=== PATIENT | female | born 1955 | race Two or more races ===

== ENCOUNTER 2016-08-16 | Outpatient (CLI) | payer MEDICAID | END 2016-08-16 15:00 | disposition home or self-care (01) | DX: R07.9 Chest pain, unspecified (principal) ==

== ENCOUNTER 2016-11-14 13:54 | Outpatient (CLI) | payer MEDICAID | END 2016-11-14 13:55 | disposition home or self-care (01) | DX: N64.4 Mastodynia (principal) ==

== ENCOUNTER 2016-12-17 08:00 | Outpatient (CLI) | payer MEDICAID ==
[2016-12-17 13:03] LABS: CHOL/HDL RATIO 4.4 (<4.4); CHOLESTEROL 204 mg/dL; HDL CHOLESTEROL 46 mg/dL; TRIGLYCERIDES 101 mg/dL; VLDL CHOLESTEROL 20 mg/dL
== END 2016-12-17 08:01 | disposition home or self-care (01) ==
LOC: LAB.N 08:00
PROVIDERS: ATTEND Internal Medicine Cardiovascular Disease
DX: R07.9 Chest pain, unspecified (principal); F17.200 Nicotine dependence, unspecified, uncomplicated; E66.9 Obesity, unspecified; R00.2 Palpitations
CPT/HCPCS: 36415; 80061

== ENCOUNTER 2017-05-31 09:20 | Outpatient (CLI) | payer MEDICAID ==
[2017-05-31 13:04] LABS: BASOPHILS % (AUTO) 0.6 %; EOSINOPHILS # (AUTO) 0.1 10^3/uL (0.0-0.7); EOSINOPHILS % (AUTO) 2.8 %; HCT - HEMATOCRIT 35.9 % (37.0-47.0); LYMPHOCYTES # (AUTO) 1.4 10^3/uL (1.5-3.5); LYMPHOCYTES % (AUTO) 27.2 %; MEAN CORPUSCULAR HEMOGLOBIN 29.3 pg (27.0-31.0); MEAN CORPUSCULAR HGB CONC 33.4 g/dL (32.0-36.0); MEAN CORPUSCULAR VOLUME 87.9 fL (81.0-99.0); MEAN PLATELET VOLUME 9.8 fL (7.9-10.8); MONOCYTES # (AUTO) 0.3 10^3/uL (0.0-1.0); MONOCYTES % (AUTO) 6.6 %; NEUTROPHILS # (AUTO) 3.3 10^3/uL (1.5-6.6); NEUTROPHILS % (AUTO) 62.8 %; RED BLOOD COUNT 4.09 10^6/uL (4.20-5.40); RED CELL DISTRIBUTION WIDTH 13.1 % (12.0-15.0); UNCORRECTED WHITE BLOOD COUNT 5.2 x10^3/uL; WHITE BLOOD COUNT 5.2 x10^3/uL (4.8-10.8)
[2017-05-31 14:00] LABS: ALBUMIN/GLOBULIN RATIO 1.4 (1.0-2.2); BILIRUBIN,TOTAL 0.6 mg/dL (0.2-1.0); BUN - BLOOD UREA NITROGEN 14 mg/dL (6-20); CALCIUM 8.8 mg/dL (8.5-10.3); CARBON DIOXIDE - CO2 26 mmol/L (21-32); CHLORIDE 108 mmol/L (101-111); CHOL/HDL RATIO 3.9 (<4.4); CHOLESTEROL 194 mg/dL; CREATININE 0.6 mg/dL (0.4-1.0); GFR - MDRD 102 (>89); GLUCOSE 106 mg/dL (70-100); HDL CHOLESTEROL 50 mg/dL; LDL/HDL RATIO 2.6 (<4.4); SODIUM 141 mmol/L (135-145); TOTAL PROTEIN 6.8 g/dL (6.7-8.2); TRIGLYCERIDES 72 mg/dL; VLDL CHOLESTEROL 14 mg/dL
== END 2017-05-31 09:21 | disposition home or self-care (01) ==
LOC: LAB.N 09:20
PROVIDERS: ATTEND Family Medicine
DX: F33.0 Major depressive disorder, recurrent, mild (principal); M85.80 Other specified disorders of bone density and structure, unspecified site; F17.200 Nicotine dependence, unspecified, uncomplicated; Z51.81 Encounter for therapeutic drug level monitoring
CPT/HCPCS: 36415; 80053; 80061; 82306; 84443; 85025

== ENCOUNTER 2017-06-27 19:37 | Emergency (ER) | payer MEDICAID ==
[2017-06-27 20:05] LABS: BILIRUBIN,URINE NEGATIVE (NEGATIVE)
[2017-06-27 20:07] LABS: UA CHARGE (STRIP ONLY) YES; UR CULTURE IF IND NOT INDICATED
--- NOTE | 2017-06-27 20:23 | ED Physician Documentation ---
PD HPI ABD PAIN - Stated complaint Stated Complaint: LT SIDE ABD PX INTO NECK - Chief complaint Chief Complaint: Abd Pain - History obtained from History obtained from: Patient - History of Present Illness Timing - onset: How many days ago (2) Timing - duration: Days (2) Timing - details: Abrupt onset, Intermittant, Waxing and waning Pain level now: 9 Quality: Pain Location: LUQ Radiation: Left flank Improved by: Other (no ameliorating factors) Worsened by: Other (no exacerbating factors) Associated symptoms: No: Fever, Nausea, Vomiting, Diarrhea, Constipation Similar symptoms before: Has not had sx before Recently seen: Not recently seen Review of Systems Constitutional: denies: Fever, Chills, Sweats GI: denies: Abdominal Pain, Nausea, Vomiting, Constipation, Diarrhea : denies: Dysuria, Frequency Skin: denies: Rash Musculoskeletal: reports: Back pain PD PAST MEDICAL HISTORY - Past Medical History Cardiovascular: None, Hypertension, High cholesterol Respiratory: Asthma, COPD, Emphysema Neuro: None Endocrine/Autoimmune: None GI: None FLOOR SPECIALIST: None : Incontinence HEENT: None Psych: Panic attacks Musculoskeletal: Osteoarthritis, Chronic back pain Derm: None - Past Surgical History Past Surgical History: Yes General: Cholecystectomy HEENT: Tonsil/Adenoidectomy - Present Medications Home Medications: Ambulatory Orders Medication Instructions Recorded Confirmed Aspirin 81 mg PO DAILY 04/02/16 08/02/16 Oxybutynin [Ditropan] 10 mg PO DAILY 04/02/16 08/02/16 Venlafaxine ER [Effexor ER] 75 mg PO DAILY 04/02/16 08/02/16 Cephalexin [Keflex] 500 mg PO BID #7 capsule 04/04/16 08/02/16 Albuterol Sulfate [Proair Hfa] 1 puffs IH PRN PRN 04/06/16 08/02/16 Fluticasone [Flonase] 1 sprays YOAN DAILY PRN 04/06/16 08/02/16 oxyCODONE/ACET 5/325 [Percocet 5 1 - 2 each PO Q6H PRN #14 tablet 06/27/17 mg/325 mg] - Allergies Allergies/Adverse Reactions: Allergies Allergy/AdvReac Type Severity Reaction Status Date / Time No Known Drug Allergies Allergy Verified 06/27/17 19:46 - Social History Does the pt smoke?: Yes Smoking Status: Current every day smoker Does the pt drink ETOH?: No - Immunizations Immunizations are current?: Yes - POLST Patient has POLST: No PD ED PE NORMAL - Vitals Vital signs reviewed: Yes - General General: Alert and oriented X 3, Well developed/nourished, Other (appears to be in mild-moderate painful distress that waxes and wanes during H+P) - HEENT HEENT: Moist mucous membranes - Cardiac Cardiac: RRR, No murmur - Respiratory Respiratory: No respiratory distress, Clear bilaterally - Abdomen Abdomen: Soft, Non tender, Non distended - Back Back: No CVA TTP - Derm Derm: Normal color, Warm and dry, No rash - Extremities Extremities: No edema Results - Vitals Vitals: Vital Signs - 24 hr 06/27/17 06/27/17 19:43 23:12 Temperature 36.6 C Heart Rate 77 71 Respiratory 16 18 Rate Blood Pressure 137/76 H 160/69 H O2 Saturation 97 97 Oxygen O2 Source Room air - EKG (time done) No standard instances Rate: Rate (enter#) (63) Rhythm: NSR [place]: Normal Intervals: Normal [place] QRS: Normal Ischemia: Normal ST segments - Labs Labs: Laboratory Tests 06/27/17 19:55 Urine Color YELLOW Urine Clarity CLEAR Urine pH 7.0 Ur Specific [place] 1.020 Urine Protein NEGATIVE Urine Glucose (UA) NEGATIVE Urine Ketones NEGATIVE Urine Occult Blood TRACE-LYSE Urine Nitrite NEGATIVE Urine Bilirubin NEGATIVE Urine Urobilinogen 1 (NORMAL) Ur Leukocyte Esterase NEGATIVE Ur Microscopic Review NOT INDICATED Urine Culture Comments NOT INDICATED - Rads (name of study) CT A/P Radiology: Prelim report reviewed, See rad report PD MEDICAL DECISION MAKING - ED course Complexity details: reviewed results, re-evaluated patient, considered differential, d/w patient Departure - Departure Disposition: 01 Home, Self Care Clinical Impression: Flank pain Back pain Qualifiers: Back pain location: low back pain Chronicity: acute Back pain laterality: left Sciatica presence: without sciatica Qualified Code(s): M54.5 - Low back pain Condition: Good Instructions: ED Flank Pain Uncertain Cause, NARCOTIC, Oral, ED Neck Back Pain General Follow-Up: Tiffanie Hall FACILITIES AND GROUNDS DIRECTOR [Primary Care Provider] - (Later this month as scheduled) Prescriptions: oxyCODONE/ACET 5/325 [Percocet 5 mg/325 mg] 1 - 2 each PO Q6H PRN #14 tablet PRN Reason: Pain Discharge Date/Time: 06/27/17 23:12
[2017-06-27] MEDS ORDERED: HYDROmorphone 1 MG/ML SYRINGE IM STA (20:35)
[2017-06-27] MEDS ORDERED: HYDROmorphone 1 MG/ML SYRINGE ONE (20:55)
--- NOTE | 2017-06-27 22:18 | CT Preliminary Report ---
Exam: CT ABDOMEN/PELVIS W/O IMPRESSION: 1. No urinary tract stones or obstruction. 2. Slight interval increase in size of hyperdense, likely proteinaceous or hemorrhagic left renal cys t. 3. Status post cholecystectomy. [facility] SITE ID: [id number]
--- NOTE | 2017-06-27 22:20 | CT Report ---
EXAM: CT ABDOMEN AND PELVIS (CT KUB) EXAM DATE: 06/27/2017 09:21 PM. CLINICAL HISTORY: Left flank pain. COMPARISONS: 08/02/2016 CT. TECHNIQUE: Routine axial helical CT imaging was performed through the abdomen and pelvis without IV c ontrast. Reconstructions: Coronal and sagittal. In accordance with CT protocol optimization, one or more of the following dose reduction techniques w ere utilized for this exam: automated exposure control, adjustment of mA and/or KV based on patient s ize, or use of iterative reconstructive technique. FINDINGS: Lung Bases: Unremarkable. Right Kidney/Ureter: No stones, hydronephrosis, or hydroureter. No perinephric fat stranding. Left Kidney/Ureter: No stones, hydronephrosis, or hydroureter. No perinephric fat stranding. There is a 3.3 x 3.1 cm slightly hyperdense exophytic cyst at the midpole of the left kidney demonstrating an attenuation value of 30 Hounsfield units. This has slightly increased in size since the comparison C T. Other Solid Organs: Noncontrast images of the solid organs are grossly unremarkable. Gallbladder/Bile Ducts: The gallbladder has been removed. No bile duct dilatation. Peritoneal Cavity: No free fluid, free air or yoselyn adenopathy. Bowel is grossly unremarkable. Pelvic Organs: No bladder stones or wall thickening. Noncontrast images of the visualized pelvic orga ns are unremarkable. Vasculature: Unremarkable. Other: None. IMPRESSION: 1. No urinary tract stones or obstruction. 2. Slight interval increase in size of hyperdense, likely proteinaceous or hemorrhagic left renal cys t. 3. Status post cholecystectomy. [facility] Referring Provider Line: [phone] SITE ID: [id number]
[2017-06-27] MEDS ORDERED: oxyCODONE/ACET 5/325 Prepack 4 PO STA (22:59)
[2017-06-27] MEDS ORDERED: oxyCODONE/ACET 5/325 Prepack 4 PO ONE (23:12)
[2017-06-27 23:15] VITALS: BP 160/69
== END 2017-06-27 23:12 | disposition home or self-care (01) ==
LOC: ED 19:37
DX: R10.32 Left lower quadrant pain (principal); M54.5 Low back pain; I10 Essential (primary) hypertension; E78.00 Pure hypercholesterolemia, unspecified; J44.9 Chronic obstructive pulmonary disease, unspecified; J45.909 Unspecified asthma, uncomplicated; M19.90 Unspecified osteoarthritis, unspecified site; Z79.82 Long term (current) use of aspirin; F17.200 Nicotine dependence, unspecified, uncomplicated
CPT/HCPCS: 74176; 81003; 93005; 96372; 99283; 99284; J1170; 81001; 87086

== ENCOUNTER 2017-09-03 10:02 | Outpatient (CLI) | payer MEDICAID ==
[2017-09-03 13:31] LABS: ALBUMIN 3.9 g/dL (3.2-5.5); ALBUMIN/GLOBULIN RATIO 1.2 (1.0-2.2); BILIRUBIN,TOTAL 0.6 mg/dL (0.2-1.0); CREATININE 0.7 mg/dL (0.4-1.0); MAGNESIUM 1.9 mg/dL (1.7-2.8); TOTAL PROTEIN 7.1 g/dL (6.7-8.2)
== END 2017-09-03 10:03 | disposition home or self-care (01) ==
LOC: LAB.N 10:02
PROVIDERS: ATTEND Nurse Practitioner Gerontology
DX: M62.838 Other muscle spasm (principal); Z13.9 Encounter for screening, unspecified
CPT/HCPCS: 36415; 80053; 83735

== ENCOUNTER 2017-11-19 13:08 | Emergency (ER) | payer MEDICAID ==
[2017-11-19] MEDS ORDERED: predniSONE 20 MG TABLET PO STA (13:33)
[2017-11-19] MEDS ORDERED: IPRATROPIUM/ALBUTEROL 3 ML NEB INH STA (13:33)
--- NOTE | 2017-11-19 13:36 | ED Physician Documentation ---
PD HPI DYSPNEA - Stated complaint Stated Complaint: DIFF BREATHING - History obtained from History obtained from: Patient - History of Present Illness Timing - onset: Yesterday (61-year-old woman with intermittent asthma presents with difficulty breathing since yesterday. Associated with cough. Says it usually related to stress and upper respiratory infections. She saw her physician yesterday who prescribed a steroid pack, an inhaler, Flonase, and Claritin. She has picked up all of these medications except I guess the pharmacy did not have the steroid. She has not used the inhaler yet. There are no fevers.) Review of Systems Constitutional: denies: Fever, Chills, Fatigue Nose: reports: Rhinorrhea / runny nose Throat: reports: Sore throat Respiratory: reports: Dyspnea, Cough GI: denies: Abdominal Pain PD PAST MEDICAL HISTORY - Past Medical History Cardiovascular: None, Hypertension, High cholesterol Respiratory: Asthma, COPD, Emphysema Neuro: None Endocrine/Autoimmune: None GI: None QUILT MAKER: None : Incontinence HEENT: None Psych: Panic attacks Musculoskeletal: Osteoarthritis, Chronic back pain Derm: None - Past Surgical History Past Surgical History: Yes General: Cholecystectomy HEENT: Tonsil/Adenoidectomy - Present Medications Home Medications: Ambulatory Orders Medication Instructions Recorded Confirmed Aspirin 81 mg PO DAILY 04/02/16 08/02/16 Oxybutynin [Ditropan] 10 mg PO DAILY 04/02/16 08/02/16 Venlafaxine ER [Effexor ER] 75 mg PO DAILY 04/02/16 08/02/16 Albuterol Sulfate [Proair Hfa] 1 puffs IH PRN PRN 04/06/16 08/02/16 Fluticasone [Flonase] 1 sprays YOAN DAILY PRN 04/06/16 08/02/16 Doxycycline Hyclate 100 mg PO BID #14 tablet 11/19/17 predniSONE [Deltasone] 60 mg PO DAILY 5 Days tablet 11/19/17 - Allergies Allergies/Adverse Reactions: Allergies Allergy/AdvReac Type Severity Reaction Status Date / Time No Known Drug Allergies Allergy Verified 11/19/17 13:15 - Social History Does the pt smoke?: Yes Smoking Status: Current every day smoker Does the pt drink ETOH?: No - Immunizations Immunizations are current?: Yes - POLST Patient has POLST: No PD ED PE NORMAL - Vitals Vital signs reviewed: Yes - General General: Alert and oriented X 3, No acute distress - HEENT HEENT: PERRL, EOMI - Neck Neck: Supple, no meningeal sign, No bony TTP - Cardiac Cardiac: RRR, No murmur - Respiratory Respiratory: No respiratory distress, Other (Wheezy and rhonchorous throughout without focal findings.) - Abdomen Abdomen: Non tender - Extremities Extremities: No edema, No calf tenderness / cord - Neuro Neuro: Alert and oriented X 3, Normal speech Results - Vitals Vitals: Vital Signs - 24 hr 11/19/17 11/19/17 13:11 13:42 Temperature 36.3 C L Heart Rate 98 90 Respiratory 26 H 22 Rate Blood Pressure 142/71 H O2 Saturation 94 Oxygen O2 Source Room air - EKG (time done) 1316 Rate: Rate (enter#) (93) Rhythm: NSR [place]: Normal Intervals: Normal [place] QRS: Normal Ischemia: Normal ST segments Computer interpretation: Agree with computer PD MEDICAL DECISION MAKING - ED course ED course: 61-year-old woman with COPD/asthma, ongoing tobacco use presents with flare of underlying illness. Much better after a DuoNeb here and given first doses of steroids. She was unable to get the steroids at the pharmacy because it was some sort of Dosepak so we will just do a 5 day burst, given that she has an increase in productive cough and underlying COPD it is not unreasonable to do antibiotics as well. Departure - Departure Disposition: 01 Home, Self Care Clinical Impression: COPD exacerbation Condition: Good Record reviewed to determine appropriate education?: Yes Instructions: COPD Dc, ED Smoking Cessation Prescriptions: Doxycycline Hyclate 100 mg PO BID #14 tablet predniSONE [Deltasone] 60 mg PO DAILY 5 Days tablet Comments: Call your doctor to arrange a follow-up appointment, make the next available appointment. In the interim, return anytime if worse or if new symptoms develop. Your blood pressure was elevated today on check into the emergency department. This does not mean that you have hypertension, it is a common phenomenon to come to the emergency department and have elevated blood pressure. I recommend that you see your primary care physician within the week to have it rechecked when you are feeling better. Forms: Activity restrictions
[2017-11-19 14:08] VITALS: BP 133/55
== END 2017-11-19 14:08 | disposition home or self-care (01) ==
LOC: ED 13:08
DX: J44.9 Chronic obstructive pulmonary disease, unspecified (principal); I10 Essential (primary) hypertension; E78.00 Pure hypercholesterolemia, unspecified; F17.200 Nicotine dependence, unspecified, uncomplicated; Z79.82 Long term (current) use of aspirin
CPT/HCPCS: 93005; 94640; 99283; 99284; J7512

== ENCOUNTER 2017-11-28 14:51 | Outpatient (CLI) | payer MEDICAID ==
--- NOTE | 2017-11-29 13:55 | Mammography Report ---
DIGITAL SCREENING MAMMOGRAM: 11/28/2017 CLINICAL INDICATION: A 61-year-old with history of benign right breast biopsy for screening. COMPARISON: 11/2016, 10/2015. TECHNIQUE: Routine CC and MLO projections were obtained of the breasts. FINDINGS: The breasts demonstrate fatty replacement bilaterally. Punctate, typically benign calcifications are present. Postbiopsy changes in the right upper outer posterior breast are stable. No suspicious masses, clustered microcalcifications or regions of architectural distortion are identified. IMPRESSION: BENIGN FINDINGS. RECOMMENDATION: Routine annual screening unless otherwise clinically indicated. BIRADS CATEGORY 2 BENIGN FINDINGS. STANDARD QUALIFYING STATEMENTS: 1. This examination was reviewed with the aid of Computer-Aided Detection (CAD). 2. A negative or benign imaging report should not delay biopsy if clinically suspicious findings are present. Consider surgical consultation if warranted. More than 5% of cancers are not identified by imaging. 3. Dense breasts may obscure an underlying neoplasm. TD: 11/29/2017 13:54
== END 2017-11-28 14:52 | disposition home or self-care (01) ==
LOC: DI.N 14:51
PROVIDERS: ATTEND Nurse Practitioner Gerontology
DX: Z12.31 Encounter for screening mammogram for malignant neoplasm of breast (principal)
CPT/HCPCS: 77067

== ENCOUNTER 2018-07-25 10:07 | Outpatient (CLI) | payer OTHER ==
--- NOTE | 2018-07-27 15:15 | XRAY Report ---
Reason: strain of thumb at wrist/hand Procedure Date: 07/25/2018 Accession Number: [id number] / [id number] Procedure: XRN - Hand 3 View BILAT CPT Code: FULL RESULT: EXAMS: 1. Right Hand Radiography 2. Left Hand Radiography EXAM DATE: 07/25/2018 02:20 PM. CLINICAL HISTORY: Strain of thumb at wrist/hand. Pain. Fall on outstretched hands bilaterally 07/23/2018. COMPARISON: None. TECHNIQUE: 3 views each hand. FINDINGS: Right: Bones: Normal. No fractures or bone lesions. Joints: No subluxation or dislocation. There is mild joint space narrowing and marginal osteophyte formation at the interphalangeal joint of the thumb and distal interphalangeal joints of the second through fourth digits. Soft Tissues: No focal soft tissue swelling appreciated. Left: Bones: Normal. No fractures or bone lesions. Joints: No subluxation or dislocation. There is mild joint space narrowing and marginal osteophyte formation at the interphalangeal joint of the thumb and distal interphalangeal joints of the second through fifth digits, most advanced at the second distal phalangeal joint. Soft Tissues: Normal. No soft tissue swelling. IMPRESSION: 1. No fracture or other acute osseous abnormality of the bilateral hands. 2. Mild degenerative osteoarthritis of the distal interphalangeal joints of the bilateral hands. [facility]
--- NOTE | 2018-07-27 16:28 | XRAY Report ---
Reason: strain at lower leg Procedure Date: 07/25/2018 Accession Number: [id number] / [id number] Procedure: XRN - Knee 3 View BILAT CPT Code: FULL RESULT: EXAMS: 1. Right Knee Radiography 2. Left Knee Radiography EXAM DATE:07/25/2018 02:41 PM. CLINICAL HISTORY:Strain at lower leg. Fell on bilateral knees 07/23/2018. COMPARISON: KNEE 3 VIEW RT 01/08/2016 4:25 PM. TECHNIQUE: 3 views each. FINDINGS: Right Knee: Bones: There is a 5 mm osseous fragment located along the medial margin of the patella, which is new compared to 01/08/2016. This is suspicious for an acute minimally displaced avulsion fracture fragment. The remainder of visualized bones appear intact. Joints: There is slight lateral subluxation and lateral tilt of the patella. No dislocation. A large joint effusion is present. There is mild marginal osteophyte formation at the medial and patellofemoral compartments, similar to prior. Soft Tissues: There is soft tissue swelling medial to the patella on the patellar sunrise view. Left Knee: Bones: Normal. No fractures or bone lesions. Joints: No subluxation or dislocation. There is mild joint space narrowing at the patellofemoral compartment. Soft Tissues: Normal. No soft tissue swelling. IMPRESSION: Right knee: 1. Findings suspicious for an acute minimally displaced avulsion fracture at the medial margin of the right patella. 2. Large right knee joint effusion. 3. Mild degenerative osteoarthritis of the right knee, similar to prior. Left knee: 1. No acute osseous abnormality. 2. Minimal degenerative osteoarthritis, most advanced at the patellofemoral compartment. [facility]
== END 2018-07-25 10:08 | disposition home or self-care (01) ==
LOC: DI.N 10:07
PROVIDERS: ATTEND Nurse Practitioner
DX: S66.219A Strain of extensor muscle, fascia and tendon of unspecified thumb at wrist and hand level, initial encounter (principal); S86.219A Strain of muscle(s) and tendon(s) of anterior muscle group at lower leg level, unspecified leg, initial encounter; M19.042 Primary osteoarthritis, left hand; M19.041 Primary osteoarthritis, right hand; M17.0 Bilateral primary osteoarthritis of knee

== ENCOUNTER 2018-12-18 14:31 | Outpatient (CLI) | payer OTHER ==
--- NOTE | 2018-12-18 16:18 | Mammography Report ---
Reason: SCREENING MAMMO Procedure Date: 12/18/2018 Accession Number: [id number] / [id number] Procedure: MGN - Screening Mammo Dig Bilat CPT Code: FULL RESULT: EXAM: Screening Mammo Dig Bilat DATE: 12/18/2018 2:51 PM CLINICAL HISTORY: Routine screening. No reported personal or family history of breast cancer. History of benign right biopsy. TECHNIQUE: (B) - Bilateral CC and MLO views were obtained. COMPARISON: 11/28/2017 through 10/06/2015 PARENCHYMAL PATTERN: (F) - The breasts demonstrate diffuse fatty replacement bilaterally. FINDINGS: Bilateral breasts: There are no suspicious masses, calcifications, or areas of distortion. IMPRESSION: Negative examination. BI-RADS category 1. RECOMMENDATION: (ANNUAL) - Recommend routine annual screening mammography. BI-RADS CATEGORY: (1) - Negative. STANDARD QUALIFYING STATEMENTS: 1. This examination was not reviewed with the aid of Computer-Aided Detection (CAD). 2. A negative or benign imaging report should not preclude biopsy if clinically suspicious findings are present. 3. Dense breasts may obscure an underlying neoplasm. 4. This examination was reviewed without the aid of 3D breast imaging (tomosynthesis).
== END 2018-12-18 14:32 | disposition home or self-care (01) ==
LOC: DI.N 14:31
PROVIDERS: ATTEND Nurse Practitioner Gerontology
DX: Z12.31 Encounter for screening mammogram for malignant neoplasm of breast (principal)
CPT/HCPCS: 77067

== ENCOUNTER 2019-06-09 17:16 | Emergency (ER) | payer OTHER ==
--- NOTE | 2019-06-09 18:27 | XRAY Report ---
Reason: non productive cough x 2 weeks pmh copd Procedure Date: 06/09/2019 Accession Number: [id number] / [id number] Procedure: XR - Chest 2 View X-Ray CPT Code: 98472 Final Report FULL RESULT: EXAM: CHEST RADIOGRAPHY EXAM DATE: 06/09/2019 05:44 PM. CLINICAL HISTORY: Non productive cough x 2 weeks pmh copd. COMPARISON: CHEST 2 VIEW PA/LAT 07/24/2015 1:36 PM. TECHNIQUE: 2 views. FINDINGS: Lungs/Pleura: No focal opacities evident. No pleural effusion. No pneumothorax. Normal volumes. Mediastinum: Heart and mediastinal contours are unremarkable. Other: None. IMPRESSION: Normal 2-view chest radiography. [facility]
[2019-06-09] MEDS ORDERED: IPRATROPIUM/ALBUTEROL 3 ML NEB INH STA (18:32)
[2019-06-09] MEDS ORDERED: predniSONE 20 MG TABLET PO STA (18:32)
[2019-06-09] MEDS ORDERED: ALBUTEROL NEB 2.5 MG/3 ML INH STA (19:45)
--- NOTE | 2019-06-09 19:53 | ED Physician Documentation ---
PD HPI DYSPNEA - Stated complaint Stated Complaint: SOA - Chief complaint Chief Complaint: Resp - History obtained from History obtained from: Patient - History of Present Illness Timing - onset: How many days ago (3-4) Timing - onset during: Rest Timing - duration: Days (3-4) Timing - details: Gradual onset Pain level max: 0 Pain level now: 0 Improved by: Inhaler/neb, Rest Worsened by: Coughing Associated symptoms: Wheezing. 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 : Incontinence HEENT: None Psych: Panic attacks Musculoskeletal: Osteoarthritis, Chronic back pain Derm: None - Past Surgical History Past Surgical History: Yes General: Cholecystectomy HEENT: Tonsil/Adenoidectomy - Present Medications Home Medications: Ambulatory Orders Medication Instructions Recorded Confirmed Aspirin 81 mg PO DAILY 04/02/16 08/02/16 Oxybutynin [Ditropan] 10 mg PO DAILY 04/02/16 08/02/16 Venlafaxine ER [Effexor ER] 75 mg PO DAILY 04/02/16 08/02/16 Albuterol Sulfate [Proair Hfa] 1 puffs IH PRN PRN 04/06/16 08/02/16 Fluticasone [Flonase] 1 sprays YOAN DAILY PRN 04/06/16 08/02/16 Doxycycline Hyclate 100 mg PO BID #14 tablet 11/19/17 predniSONE [Deltasone] 60 mg PO DAILY 5 Days tablet 11/19/17 Albuterol Sulf [Ventolin Hfa 1 - 2 puffs INH Q4HR PRN #1 inhaler 06/09/19 Inhaler] predniSONE [Deltasone] 10 mg PO [id number] #42 tab 06/09/19 - Allergies Allergies/Adverse Reactions: Allergies Allergy/AdvReac Type Severity Reaction Status Date / Time No Known Drug Allergies Allergy Verified 11/19/17 13:15 - Social History Does the pt smoke?: Yes Smoking Status: Current every day smoker Does the pt drink ETOH?: No Does the pt have substance abuse?: No - Immunizations Immunizations are current?: Yes - POLST Patient has POLST: No PD ED PE NORMAL - Vitals Vital signs reviewed: Yes - General General: Alert and oriented X 3, No acute distress - HEENT HEENT: Moist mucous membranes - Cardiac Cardiac: RRR - Respiratory Respiratory: Other (Mild respiratory distress. Very diminished breath sounds bilaterally.) - Abdomen Abdomen: Soft, Non tender, Non distended - Derm Derm: Warm and dry - Neuro Neuro: Alert and oriented X 3 - Psych Psych: Normal mood, Normal affect Results - Vitals Vitals: Vital Signs - 24 hr 06/09/19 06/09/19 06/09/19 17:28 18:32 19:56 Temperature 36.4 C L 36.6 C Heart Rate 85 81 75 Respiratory 20 16 20 Rate Blood Pressure 145/91 H 154/93 H O2 Saturation 99 98 06/09/19 20:10 Temperature 36.5 C Heart Rate 75 Respiratory 16 Rate Blood Pressure 158/79 H O2 Saturation 95 Oxygen O2 Source Room air - Rads (name of study) cxr Radiology: Prelim report reviewed, EMP read contemporaneously, See rad report (Normal 2-view chest radiography. ) PD MEDICAL DECISION MAKING - ED course Complexity details: reviewed results, re-evaluated patient, considered differential, d/w patient ED course: 63-year-old female with a COPD exacerbation. Feels better after prednisone and nebulizer treatment. She is well-appearing, nontoxic. Afebrile. Will place on a steroid taper for home. Patient counseled regarding signs and symptoms for which I believe and urgent re-evaluation would be necessary. Patient with good understanding of and agreement to plan and is comfortable going home at this time This document was made in part using voice recognition software. While efforts are made to proofread this document, sound alike and grammatical errors may occur. Departure - Departure Disposition: 01 Home, Self Care Clinical Impression: COPD with exacerbation Condition: Good Instructions: ED COPD Flare Follow-Up: Tiffanie Hall HEALTH PHYSICS TECHNICIAN [Primary Care Provider] - Within 1 week Prescriptions: Albuterol Sulf [Ventolin Hfa Inhaler] 1 - 2 puffs INH Q4HR PRN #1 inhaler PRN Reason: Shortness Of Air/Wheezing predniSONE [Deltasone] 10 mg PO [id number] #42 tab Comments: Return if you worsen. Follow-up with your doctor for further care. No antibiotics are needed tonight. Forms: Activity restrictions Discharge Date/Time: 06/09/19 20:11
[2019-06-09 20:11] VITALS: BP 158/79
== END 2019-06-09 20:11 | disposition home or self-care (01) ==
LOC: ED 17:16
DX: J43.9 Emphysema, unspecified (principal); F17.200 Nicotine dependence, unspecified, uncomplicated; I10 Essential (primary) hypertension; Z79.82 Long term (current) use of aspirin
CPT/HCPCS: 71046; 94640; 99283; 99284; J7512

== ENCOUNTER 2019-09-11 15:33 | Outpatient (CLI) | payer OTHER ==
--- NOTE | 2019-09-15 08:35 | CT Report ---
Reason: TOBACCO DEPENDENCE Procedure Date: 09/11/2019 Accession Number: [id number] / [id number] Procedure: CT - Low Dose Lung Cancer Screen CPT Code: Final Report FULL RESULT: EXAM CT LUNG SCREEN EXAM DATE: 09/11/2019 03:50 PM. HISTORY: 63-year-old patient with [id number] smoking history. Currently smoking: No. Years since quittin. Patient has had cough, shortness of breath and wheezing for 6 weeks.. COMPARISON: CHEST SCREEN LOW DOSE W/O 10/06/2015 9:03 AM. TECHNIQUE: CT examination of the entire thorax without contrast was performed using low-dose technique. Thin section coronal, axial, sagittal and MIP axial images were obtained. In accordance with CT protocol optimization, one or more of the following dose reduction techniques were utilized for this exam: automated exposure control, adjustment of mA and/or KV based on patient size, or use of iterative reconstructive technique. FINDINGS: Nodules: Right upper lobe: None. Right middle lobe: Stable 2 mm right middle lobe lung nodule, series 4 image 69. Right lower lobe: Stable 2 mm anterior right lower lobe lung nodule, series 4 image 73. Left upper lobe: None. Left lower lobe: Stable 3 mm left lower lobe lung nodule on 3D MIP series 10 image 23 corresponding to axial series 4 image 80. Emphysema: None. Pleura: Unremarkable. Aorta: Mild atherosclerotic calcifications. No thoracic aortic aneurysm. Mediastinum: Unremarkable. Coronary calcifications: Moderate LAD calcifications. Other pulmonary findings: None. Other extrapulmonary findings: Small hiatal hernia. Prior cholecystectomy. Calcified portal lymph nodes from remote granulomatous disease. IMPRESSION: Lung-RADS ASSESSMENT CATEGORY: 2 - benign appearance or behavior. Probability of malignancy: Less than 1%. RECOMMENDATION: Continue annual screening with LDCT in 12 months. [facility]
== END 2019-09-11 15:34 | disposition home or self-care (01) ==
LOC: DI 15:33
PROVIDERS: ATTEND Nurse Practitioner Gerontology
DX: Z12.2 Encounter for screening for malignant neoplasm of respiratory organs (principal); Z87.891 Personal history of nicotine dependence

== ENCOUNTER 2019-12-11 10:31 | Outpatient (CLI) | payer OTHER ==
[2019-12-11 13:18] LABS: BASOPHILS % (AUTO) 0.2 %; EOSINOPHILS % (AUTO) 0.3 %; HGB - HEMOGLOBIN 11.5 g/dL (12.0-16.0); LYMPHOCYTES # (AUTO) 1.9 10^3/uL (1.5-3.5); LYMPHOCYTES % (AUTO) 20.3 %; MEAN CORPUSCULAR HGB CONC 31.5 g/dL (32.0-36.0); MEAN PLATELET VOLUME 11.2 fL (7.9-10.8); MONOCYTES # (AUTO) 0.6 10^3/uL (0.0-1.0); MONOCYTES % (AUTO) 6.4 %; NEUTROPHILS # (AUTO) 6.8 10^3/uL (1.5-6.6); NEUTROPHILS % (AUTO) 72.2 %; PLT - PLATELET COUNT 249 10^3/uL (130-450); RED CELL DISTRIBUTION WIDTH 12.2 % (12.0-15.0); WHITE BLOOD COUNT 9.4 x10^3/uL (4.8-10.8)
[2019-12-11 14:01] LABS: ALBUMIN 3.8 g/dL (3.2-5.5); ALBUMIN/GLOBULIN RATIO 1.4 (1.0-2.2); ALKALINE PHOSPHATASE 79 IU/L (42-121); ALT ALANINE AMINOTRANSFERASE 17 IU/L (10-60); AST ASPARTATE AMINOTRANSFERASE 14 IU/L (10-42); BILIRUBIN,TOTAL 0.8 mg/dL (0.2-1.0); BUN - BLOOD UREA NITROGEN 18 mg/dL (6-20); CALCIUM 8.9 mg/dL (8.5-10.3); CARBON DIOXIDE - CO2 30 mmol/L (21-32); CHLORIDE 106 mmol/L (101-111); CHOL/HDL RATIO 3.2 (<4.4); CHOLESTEROL 178 mg/dL; CREATININE 0.6 mg/dL (0.4-1.0); GLUCOSE 88 mg/dL (70-100); HDL CHOLESTEROL 56 mg/dL; LDL CHOLESTEROL,CALCULATED 108 mg/dL; LDL/HDL RATIO 1.9 (<4.4); SODIUM 140 mmol/L (135-145); TOTAL PROTEIN 6.5 g/dL (6.7-8.2); VLDL CHOLESTEROL 14 mg/dL
== END 2019-12-11 23:59 | disposition home or self-care (01) ==
LOC: LAB.WCP 10:31
PROVIDERS: ATTEND Family Medicine
DX: I10 Essential (primary) hypertension (principal)
CPT/HCPCS: 36415; 80053; 80061; 83721; 84443; 85025

== ENCOUNTER 2020-04-13 16:14 | Outpatient (CLI) | payer OTHER ==
--- NOTE | 2020-04-13 16:15 | XRAY Report ---
PROCEDURE: Chest 2 View X-Ray INDICATIONS: ACUTE EXACERBATION OF COPD TECHNIQUE: 2 view(s) of the chest. COMPARISON: CT chest 09/11/2019 FINDINGS: Surgical changes and devices: None. Lungs and pleura: No pleural effusions or pneumothorax. Lungs are clear. Mediastinum: Mediastinal contours are normal. Heart size is normal. Bones and chest wall: No suspicious bony abnormalities. Soft tissues appear unremarkable. IMPRESSION: No acute pulmonary process. Reviewed by: Ofe Adair MD on 04/13/2020 4:14 PM PDT Approved by: Ofe Adair MD on 04/13/2020 4:14 PM PDT Station ID: [id number]
== END 2020-04-13 23:59 | disposition home or self-care (01) ==
LOC: DI.WCP 16:14
PROVIDERS: ATTEND Family Medicine
DX: J44.1 Chronic obstructive pulmonary disease with (acute) exacerbation (principal)
CPT/HCPCS: 71046

== ENCOUNTER 2020-05-20 08:00 | Outpatient (CLI) | payer OTHER ==
[2020-05-20 18:32] LABS: BASOPHILS % (AUTO) 0.5 %; EOSINOPHILS # (AUTO) 0.2 10^3/uL (0.0-0.7); EOSINOPHILS % (AUTO) 3.5 %; HGB - HEMOGLOBIN 10.9 g/dL (12.0-16.0); LYMPHOCYTES # (AUTO) 1.4 10^3/uL (1.5-3.5); LYMPHOCYTES % (AUTO) 24.7 %; MEAN CORPUSCULAR HEMOGLOBIN 27.4 pg (27.0-31.0); MEAN CORPUSCULAR HGB CONC 30.2 g/dL (32.0-36.0); MEAN CORPUSCULAR VOLUME 90.7 fL (81.0-99.0); MEAN PLATELET VOLUME 11.8 fL (7.9-10.8); MONOCYTES # (AUTO) 0.4 10^3/uL (0.0-1.0); MONOCYTES % (AUTO) 6.4 %; NEUTROPHILS # (AUTO) 3.5 10^3/uL (1.5-6.6); NEUTROPHILS % (AUTO) 64.7 %; PLT - PLATELET COUNT 215 10^3/uL (130-450); RED BLOOD COUNT 3.98 10^6/uL (4.20-5.40); RED CELL DISTRIBUTION WIDTH 12.5 % (12.0-15.0); WHITE BLOOD COUNT 5.5 x10^3/uL (4.8-10.8)
== END 2020-05-20 23:59 | disposition home or self-care (01) ==
LOC: LAB.WCP 08:00
PROVIDERS: ATTEND Family Medicine
DX: J44.1 Chronic obstructive pulmonary disease with (acute) exacerbation (principal)
CPT/HCPCS: 36415; 85025

== ENCOUNTER 2020-06-22 09:17 | Outpatient (CLI) | payer OTHER ==
[2020-06-22] MEDS ORDERED: ALBUTEROL 1 PUFF INH STA (12:07)
== END 2020-06-22 09:18 | disposition home or self-care (01) ==
LOC: RT 09:17
PROVIDERS: ATTEND Family Medicine
DX: J44.1 Chronic obstructive pulmonary disease with (acute) exacerbation (principal)
CPT/HCPCS: 94060

== ENCOUNTER 2020-08-17 13:20 | Outpatient (CLI) | payer OTHER ==
[2020-08-17 18:05] LABS: BASOPHILS % (AUTO) 0.6 %; EOSINOPHILS # (AUTO) 0.3 10^3/uL (0.0-0.7); EOSINOPHILS % (AUTO) 5.1 %; HGB - HEMOGLOBIN 10.6 g/dL (12.0-16.0); LYMPHOCYTES # (AUTO) 1.4 10^3/uL (1.5-3.5); LYMPHOCYTES % (AUTO) 26.9 %; MEAN CORPUSCULAR HGB CONC 31.5 g/dL (32.0-36.0); MEAN CORPUSCULAR VOLUME 88.7 fL (81.0-99.0); MEAN PLATELET VOLUME 11.5 fL (7.9-10.8); MONOCYTES # (AUTO) 0.4 10^3/uL (0.0-1.0); MONOCYTES % (AUTO) 7.6 %; NEUTROPHILS % (AUTO) 59.6 %; PLT - PLATELET COUNT 210 10^3/uL (130-450); RED BLOOD COUNT 3.79 10^6/uL (4.20-5.40); RED CELL DISTRIBUTION WIDTH 11.9 % (12.0-15.0); WHITE BLOOD COUNT 5.1 x10^3/uL (4.8-10.8)
== END 2020-08-17 13:21 | disposition home or self-care (01) ==
LOC: LAB.WCP 13:20
PROVIDERS: ATTEND Internal Medicine
DX: J44.9 Chronic obstructive pulmonary disease, unspecified (principal)
CPT/HCPCS: 36415; 82785; 85025

== ENCOUNTER 2020-08-26 12:09 | Outpatient (CLI) | payer OTHER ==
[2020-08-26 18:44] LABS: BILIRUBIN,URINE NEGATIVE (NEGATIVE); GLUCOSE, URINE (UA) NEGATIVE (NEGATIVE); KETONES,URINE (UA) NEGATIVE (NEGATIVE); LEUKOCYTE ESTERASE, URINE NEGATIVE (NEGATIVE); NITRITE,URINE NEGATIVE (NEGATIVE); OCCULT BLOOD,URINE NEGATIVE (NEGATIVE); PROTEIN,URINE NEGATIVE (NEGATIVE); UROBILINOGEN,URINE 0.2 (NORMAL) E.U./dL (NORMAL)
[2020-08-26 18:49] LABS: FERRITIN 13.4 ng/mL (11.0-306.8)
[2020-08-26 18:54] LABS: CALCIUM 9.3 mg/dL (8.5-10.3); CREATININE 0.7 mg/dL (0.4-1.0)
[2020-08-26 19:03] LABS: CLARITY,URINE CLOUDY (CLEAR)
[2020-08-26 19:10] LABS: RBC,URINE None Seen /HPF (0-5)
[2020-08-26 19:11] LABS: AMORPHOUS SEDIMENT,UR Marked /LPF; BACTERIA,URINE Rare /HPF (None Seen); SQUAMOUS EPITHELIAL CELL,UR RARE Squamous (<= Few)
[2020-08-26 19:16] LABS: ABSOLUTE RETICS # AUTO 0.063 10^6/uL (0.020-0.110); RED BLOOD COUNT 4.15 10^6/uL (4.20-5.40)
== END 2020-08-26 23:59 | disposition home or self-care (01) ==
LOC: LAB.WCP 12:09
PROVIDERS: ATTEND Internal Medicine
DX: I10 Essential (primary) hypertension (principal); R10.9 Unspecified abdominal pain; D64.9 Anemia, unspecified
CPT/HCPCS: 36415; 80048; 81001; 82607; 82728; 83540; 84443; 84466; 85045; 87086

== ENCOUNTER 2020-09-01 08:00 | Outpatient (CLI) | payer OTHER | END 2020-09-01 23:59 | disposition home or self-care (01) | LOC: LAB.R 08:00 | PROVIDERS: ATTEND Physician Assistant Medical | DX: J44.1 Chronic obstructive pulmonary disease with (acute) exacerbation (principal); Z20.822 Contact with and (suspected) exposure to COVID-19 | CPT/HCPCS: 87275; 87276 ==

== ENCOUNTER 2020-09-01 12:20 | Outpatient (CLI) | payer OTHER ==
--- NOTE | 2020-09-01 16:42 | XRAY Report ---
PROCEDURE: Chest 2 View X-Ray INDICATIONS: SOB AND COUGH TECHNIQUE: 2 view(s) of the chest. COMPARISON: None. FINDINGS: Surgical changes and devices: None. Lungs and pleura: No pleural effusions or pneumothorax. Linear opacity is noted within the left base . Mediastinum: Mediastinal contours are normal. Heart size is normal. Bones and chest wall: No suspicious bony abnormalities. Soft tissues appear unremarkable. IMPRESSION: Linear left basilar opacity, new compared to prior exam. This could be a focus of atelec tasis. However, developing focus of pneumonia cannot be definitively excluded. Reviewed by: Ofe Adair MD on 09/01/2020 4:41 PM PST Approved by: Ofe Adair MD on 09/01/2020 4:41 PM PST Station ID: [id number]
== END 2020-09-01 23:59 | disposition home or self-care (01) ==
LOC: DI.N 12:20
PROVIDERS: ATTEND Physician Assistant Medical
DX: R91.8 Other nonspecific abnormal finding of lung field (principal); J44.1 Chronic obstructive pulmonary disease with (acute) exacerbation; Z20.822 Contact with and (suspected) exposure to COVID-19
CPT/HCPCS: 87275; 87276

== ENCOUNTER 2020-09-29 19:34 | Outpatient (CLI) | payer OTHER ==
--- NOTE | 2020-09-30 09:24 | Ultrasound Report ---
PROCEDURE: Retroperitoneal INDICATIONS: RT FLANK PAIN, HX OF RENAL STONE TECHNIQUE: Real-time scanning was performed of the retroperitoneal organs, with image documentation. COMPARISON: None. FINDINGS: Kidneys: Kidneys are normal in size. Right kidney measures 11.1 cm long; left kidney measures 10.1 cm long. Right renal cortical thickness is 1.3 cm; left renal cortical thickness is 1.7 cm. No yoni d masses or hydronephrosis. There is a 5 mm echogenic focus within the inferior pole of the left kidn ey as well superior right renal pole. There are hypoechoic foci within the right kidney the largest i n the inferior pole measuring 3 cm. Bladder: Prevoid volume 207 cc, post void residual 5 cc. Bilateral ureteral jets are identified. IMPRESSION: 1. Bilateral 5 mm nonobstructing renal calculi. 2. Left-sided renal cysts are noted. Reviewed by: Ofe Adair MD on 09/30/2020 8:22 AM [facility] Approved by: Ofe Adair MD on 09/30/2020 8:22 AM [facility] Station ID: [id number]
== END 2020-09-29 19:35 | disposition home or self-care (01) ==
LOC: DI 19:34
PROVIDERS: ATTEND Internal Medicine
DX: R10.9 Unspecified abdominal pain (principal); N20.0 Calculus of kidney; N28.1 Cyst of kidney, acquired

== ENCOUNTER 2020-09-29 19:36 | Outpatient (CLI) | payer OTHER ==
--- NOTE | 2020-09-30 09:18 | CT Report ---
PROCEDURE: Low Dose Lung Cancer Screen INDICATIONS: HX OF SMOKING TECHNIQUE: Noncontrast low-dose 5 mm thick sections acquired from the pulmonary apices to the posterior costophr enic angles. 7 mm thick coronal and sagittal MIP reformats were then acquired. For radiation dose r eduction, the following was used: automated exposure control, adjustment of mA and/or kV according t o patient size. COMPARISON: 09/11/2019 ,10/06/2015 FINDINGS: Image quality: Excellent. Lungs and pleura: A 6 mm nodule in the anterior left lower lobe (4/178), stable compared to most rem ote prior study. 4 mm central left lower lobe nodule (4/167), also stable. Previously mentioned 3 mm right middle lobe nodule (4/143), is stable. Anterior right lower lobe nodule previously mentioned ap pears vascular in nature. The previously noted left lower lobe nodules not identified. Mild diffuse bronchial wall thickening. Central airways are patent. No acute consolidations or pleura l effusions. Mediastinum: Heart size is normal. Moderate coronary artery calcification. No pericardial effusion. No mediastinal adenopathy by size criteria. Thoracic aorta and central pulmonary arteries are stephane l in size. Esophagus is normal in caliber. Small hiatal hernia. Bones and chest wall: No suspicious bony lesions. No vertebral body compression fractures. No axil ashvin or supraclavicular adenopathy by size criteria. The thyroid is normal in size. Abdomen: Surgically absent gallbladder. Small coarse calcifications in the portacaval region. Visuali zed upper abdomen solid organs and bowel loops appear otherwise normal in the absence of contrast. IMPRESSION: 1. Scattered stable bilateral lung nodules. 2. Lung RADS category 2, benign. Continue annual low-dose chest CT screening as long as the patient m eets established criteria. 3. Moderate coronary artery calcification. Reviewed by: Luna Freitas MD on 09/30/2020 9:16 AM PST Approved by: Luna Freitas MD on 09/30/2020 9:16 AM PST Station ID: [id number]
== END 2020-09-29 19:37 | disposition home or self-care (01) ==
LOC: DI 19:36
PROVIDERS: ATTEND Internal Medicine
DX: Z12.2 Encounter for screening for malignant neoplasm of respiratory organs (principal); Z87.891 Personal history of nicotine dependence; R91.8 Other nonspecific abnormal finding of lung field; R10.9 Unspecified abdominal pain; N20.0 Calculus of kidney; N28.1 Cyst of kidney, acquired

== ENCOUNTER 2020-10-10 08:00 | Outpatient (CLI) | payer OTHER ==
[2020-10-10 18:21] LABS: BASOPHILS % (AUTO) 0.5 %; EOSINOPHILS # (AUTO) 0.1 10^3/uL (0.0-0.7); EOSINOPHILS % (AUTO) 1.7 %; LYMPHOCYTES # (AUTO) 1.2 10^3/uL (1.5-3.5); LYMPHOCYTES % (AUTO) 20.6 %; MEAN CORPUSCULAR HGB CONC 31.4 g/dL (32.0-36.0); MEAN CORPUSCULAR VOLUME 89.1 fL (81.0-99.0); MONOCYTES # (AUTO) 0.4 10^3/uL (0.0-1.0); NEUTROPHILS # (AUTO) 4.1 10^3/uL (1.5-6.6); NEUTROPHILS % (AUTO) 69.9 %; PLT - PLATELET COUNT 221 10^3/uL (130-450); RED BLOOD COUNT 3.93 10^6/uL (4.20-5.40); RED CELL DISTRIBUTION WIDTH 12.5 % (12.0-15.0); WHITE BLOOD COUNT 5.9 x10^3/uL (4.8-10.8)
[2020-10-10 18:38] LABS: ALBUMIN 4.1 g/dL (3.2-5.5); ALBUMIN/GLOBULIN RATIO 1.3 (1.0-2.2); BILIRUBIN,TOTAL 0.8 mg/dL (0.2-1.0); CALCIUM 9.4 mg/dL (8.5-10.3); CREATININE 0.9 mg/dL (0.4-1.0); POTASSIUM 3.7 mmol/L (3.5-5.0); TOTAL PROTEIN 7.2 g/dL (6.7-8.2); URIC ACID 5.7 mg/dL (2.6-7.2)
== END 2020-10-10 23:59 | disposition home or self-care (01) ==
LOC: LAB.N 08:00
PROVIDERS: ATTEND Nurse Practitioner
DX: M10.9 Gout, unspecified (principal)
CPT/HCPCS: 36415; 80053; 83880; 84550; 85025

== ENCOUNTER 2020-10-20 14:47 | Outpatient (CLI) | payer OTHER ==
--- NOTE | 2020-10-20 16:06 | XRAY Report ---
PROCEDURE: Knee Standing BILAT INDICATIONS: BILATERAL KNEE PAIN TECHNIQUE: 2 views of the right knee, and 2 views of the left knee. COMPARISON: None. FINDINGS: Bones: No acute fractures or dislocations. No suspicious bony lesions. There is mild left and mild -to-moderate right medial compartment narrowing. Moderate right lateral and minimal left lateral comp artment narrowing is present. Mild to moderate bilateral patellofemoral compartment narrowing is pres ent. Periarticular osteophytes are present. No erosions. Interval progression is noted bilaterally. Soft tissues: Mild bilateral knee joint effusions. No suspicious soft tissue calcification. IMPRESSION: 1. Tricompartmental arthritis of the knees bilaterally most severe on the right as above. Reviewed by: Ofe Adair MD on 10/20/2020 4:05 PM PDT Approved by: Ofe Adair MD on 10/20/2020 4:05 PM PDT Station ID: [id number]
== END 2020-10-20 14:48 | disposition home or self-care (01) ==
LOC: DI.N 14:47
PROVIDERS: ATTEND Internal Medicine
DX: M17.0 Bilateral primary osteoarthritis of knee (principal)

== ENCOUNTER 2020-10-29 14:45 | Outpatient (CLI) | payer OTHER ==
--- NOTE | 2020-10-29 15:54 | Ultrasound Report ---
PROCEDURE: Duplex Ext Veins Left INDICATIONS: L KNEE PAIN TECHNIQUE: Real-time imaging, as well as color and pulse Doppler interrogation, were performed of the lower extr emity deep veins from the inguinal ligament to the popliteal fossa. COMPARISON: None. FINDINGS: The deep veins are normally compressible, and free of intraluminal thrombus. Color and pu lse Doppler demonstrate normal phasic intraluminal flow. There is normal augmentation response to di stal compression maneuver. There is a fluid collection the medial aspect of the knee measuring 8 x 6 x 4 mm. IMPRESSION: 1. No deep venous thrombosis. 2. Mild fluid collection along the medial knee. This could be inflammatory. Other etiologies such as hematoma cannot be excluded. Reviewed by: Ofe Adair MD on 10/29/2020 3:53 PM PDT Approved by: Ofe dAair MD on 10/29/2020 3:53 PM PDT Station ID: [id number]
== END 2020-10-29 14:46 | disposition home or self-care (01) ==
LOC: DI 14:45
PROVIDERS: ATTEND Internal Medicine
DX: M25.462 Effusion, left knee (principal)

== ENCOUNTER 2021-02-04 08:00 | Outpatient (CLI) | payer OTHER ==
[2021-02-04 17:06] LABS: BASOPHILS # (AUTO) 0.1 10^3/uL (0.0-0.1); BASOPHILS % (AUTO) 0.7 %; EOSINOPHILS # (AUTO) 0.1 10^3/uL (0.0-0.7); HCT - HEMATOCRIT 32.7 % (37.0-47.0); HGB - HEMOGLOBIN 10.2 g/dL (12.0-16.0); LYMPHOCYTES # (AUTO) 1.5 10^3/uL (1.5-3.5); LYMPHOCYTES % (AUTO) 21.8 %; MEAN CORPUSCULAR HEMOGLOBIN 28.3 pg (27.0-31.0); MEAN CORPUSCULAR HGB CONC 31.2 g/dL (32.0-36.0); MEAN CORPUSCULAR VOLUME 90.6 fL (81.0-99.0); MEAN PLATELET VOLUME 11.8 fL (7.9-10.8); MONOCYTES # (AUTO) 0.4 10^3/uL (0.0-1.0); MONOCYTES % (AUTO) 6.4 %; NEUTROPHILS # (AUTO) 4.8 10^3/uL (1.5-6.6); NEUTROPHILS % (AUTO) 68.7 %; PLT - PLATELET COUNT 213 10^3/uL (130-450); RED BLOOD COUNT 3.61 10^6/uL (4.20-5.40); RED CELL DISTRIBUTION WIDTH 12.6 % (12.0-15.0); WHITE BLOOD COUNT 6.9 x10^3/uL (4.8-10.8)
[2021-02-04 17:17] LABS: ALBUMIN 3.9 g/dL (3.2-5.5); ALBUMIN/GLOBULIN RATIO 1.4 (1.0-2.2); BILIRUBIN,TOTAL 0.6 mg/dL (0.2-1.0); CALCIUM 8.6 mg/dL (8.5-10.3); CREATININE 0.7 mg/dL (0.4-1.0); POTASSIUM 3.6 mmol/L (3.5-5.0); TOTAL PROTEIN 6.7 g/dL (6.7-8.2)
== END 2021-02-04 08:01 | disposition home or self-care (01) ==
LOC: LAB.N 08:00
PROVIDERS: ATTEND Nurse Practitioner
DX: R29.6 Repeated falls (principal)
CPT/HCPCS: 36415; 80053; 85025

== ENCOUNTER 2021-02-04 14:25 | Outpatient (CLI) | payer OTHER | END 2021-02-05 08:00 | LOC: DI.N 14:25 | PROVIDERS: ATTEND Nurse Practitioner | DX: R29.6 Repeated falls (principal) | CPT/HCPCS: 36415; 80053; 85025 ==

== ENCOUNTER 2021-04-20 13:50 | Outpatient (CLI) | payer OTHER ==
--- NOTE | 2021-04-24 09:36 | Mammography Report ---
BILATERAL DIGITAL SCREENING MAMMOGRAM 3D/2D: 04/20/2021 CLINICAL: Family history of breast cancer. Routine screening. Comparison is made to exams dated: 12/18/2018 mammogram, 11/28/2017 mammogram, 11/14/2016 mammogram, an d 10/06/2015 mammogram - [facility]. There are scattered fibroglandular elements in both breasts. No significant masses, calcifications, or other findings are seen in either breast. There has been no significant interval change. IMPRESSION: NEGATIVE There is no mammographic evidence of malignancy. A 1 year screening mammogram is recommended. This exam was interpreted at Station ID: [id number]. NOTE: For mammograms, a report in lay terms will be sent to the patient. Approximately 15% of breast malignancies will not be visualized mammographically. In the management of a palpable breast mass, a negative mammogram must not discourage biopsy of a clinically suspicious lesion. Electronically Signed By: Antonio Cespedes M.D. ddp/penrad:04/20/2021 15:52:31 ACR BI-RADS Category 1: Negative [id number] PARENCHYMAL PATTERN: (A) - The breast(s) demonstrate(s) scattered fibroglandular densities. BI-RADS CATEGORY: (1) - 1 RECOMMENDATION: (ANNUAL) - Recommend routine annual screening mammography. [id number] 1 year screening LATERALITY: (B)
== END 2021-04-20 13:51 | disposition home or self-care (01) ==
LOC: DI.N 13:50
DX: Z12.31 Encounter for screening mammogram for malignant neoplasm of breast (principal); Z80.3 Family history of malignant neoplasm of breast

== ENCOUNTER 2021-04-27 08:27 | Outpatient (CLI) | payer OTHER ==
--- NOTE | 2021-04-27 09:16 | XRAY Report ---
PROCEDURE: Knee Standing RT INDICATIONS: OSTEOARTHRITIS TECHNIQUE: 3 views of both knees. COMPARISON: None. FINDINGS: Bones: No acute fractures or dislocations. No suspicious bony lesions. Both knees have tricompartme ntal degenerative changes with tricompartmental osteophytes. There is mild joint space narrowing of t he right knee medially. No radiographic evidence of erosions or inflammatory arthropathy. Soft tissues: No knee joint effusions. No suspicious soft tissue calcification. IMPRESSION: 1. Tricompartmental degenerative changes consistent with osteoarthritis. 2. No acute abnormality. Reviewed by: Bayron Schwartz on 04/27/2021 9:14 AM PDT Approved by: Bayron Schwartz on 04/27/2021 9:14 AM PDT Station ID: [id number]
== END 2021-04-27 23:59 | disposition home or self-care (01) ==
LOC: DI.N 08:27
PROVIDERS: ATTEND Orthopaedic Surgery
DX: M17.0 Bilateral primary osteoarthritis of knee (principal)

== ENCOUNTER 2021-08-30 15:50 | Emergency (ER) | payer MEDICAID, OTHER ==
[2021-08-30 16:00] VITALS: BP 158/70
[2021-08-30] MEDS ORDERED: IBUPROFEN 800 MG TABLET PO STA (16:31)
--- NOTE | 2021-08-30 16:35 | ED Physician Documentation ---
History of Present Illness - Stated complaint Stated Complaint: HEAD INJ - Chief complaint Chief Complaint: Trauma Hd/Nk - History obtained from History obtained from: Patient - Additonal information Additional information: The patient comes to the emergency department with chief complaint of pain over the right side of her scalp and on the left shoulder after being hit by a falling plastic chair at home. Patient states she was trying to get things off of a shelf when a plastic chair fell down, it for striking her head on the top right side, and then hitting her left shoulder over the clavicle. Patient states that it hurt and initially she felt more swelling although the swelling seems to gone down in time. Patient denies any loss of consciousness. No spinal pain. No dizziness or headache. She states it is painful in the area where the chair hit. Review of Systems Ten Systems: 10 systems reviewed and negative Constitutional: reports: Reviewed and negative Eyes: reports: Reviewed and negative Ears: reports: Reviewed and negative Nose: reports: Reviewed and negative Throat: reports: Reviewed and negative Cardiac: reports: Reviewed and negative Respiratory: reports: Reviewed and negative GI: reports: Reviewed and negative : reports: Reviewed and negative Skin: reports: Reviewed and negative Musculoskeletal: reports: Reviewed and negative Neurologic: reports: Reviewed and negative Psychiatric: reports: Reviewed and negative Endocrine: reports: Reviewed and negative Immunocompromised: reports: Reviewed and negative PD PAST MEDICAL HISTORY - Past Medical History Cardiovascular: None, Hypertension, High cholesterol Respiratory: Asthma, COPD, Emphysema Neuro: None Endocrine/Autoimmune: None GI: None 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 : Incontinence HEENT: None Psych: Panic attacks Musculoskeletal: Osteoarthritis, Chronic back pain Derm: None - Past Surgical History Past Surgical History: Yes General: Cholecystectomy HEENT: Tonsil/Adenoidectomy - Present Medications Home Medications: Ambulatory Orders Medication Instructions Recorded Confirmed Aspirin 81 mg PO DAILY 04/02/16 08/02/16 Oxybutynin [Ditropan] 10 mg PO DAILY 04/02/16 08/02/16 Venlafaxine ER [Effexor ER] 75 mg PO DAILY 04/02/16 08/02/16 Albuterol Sulfate [Proair Hfa] 1 puffs IH PRN PRN 04/06/16 08/02/16 Fluticasone [Flonase] 1 sprays YOAN DAILY PRN 04/06/16 08/02/16 Doxycycline Hyclate 100 mg PO BID #14 tablet 11/19/17 predniSONE [Deltasone] 60 mg PO DAILY 5 Days tablet 11/19/17 Albuterol Sulf [Ventolin Hfa 1 - 2 puffs INH Q4HR PRN #1 inhaler 06/09/19 Inhaler] predniSONE [Deltasone] 10 mg PO [id number] #42 tab 06/09/19 - Allergies Allergies/Adverse Reactions: Allergies Allergy/AdvReac Type Severity Reaction Status Date / Time No Known Drug Allergies Allergy Verified 08/30/21 15:57 - Social History Does the pt smoke?: Yes Smoking Status: Current every day smoker Does the pt drink ETOH?: No Does the pt have substance abuse?: No - Immunizations Immunizations are current?: Yes - POLST Patient has POLST: No PD ED PE NORMAL - Vitals Vital signs reviewed: Yes - General General: Alert and oriented X 3, No acute distress, Well developed/nourished - HEENT HEENT: PERRL, EOMI, Moist mucous membranes, Other (Slight contusion with slight edema over the superior parietal area on the right. No bony depression. No skin breakage.) - Neck Neck: Supple, no meningeal sign, No bony TTP - Respiratory Respiratory: No respiratory distress - Derm Derm: Normal color, Warm and dry, Other - Extremities Extremities: No deformity, Other (Tenderness to palpation over L mid-clavicle without edema, contusion, or deformity of the bone. 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 I did not feel that she needed imaging for her injuries as findings were extremely minor, and the likelihood of a plastic chair causing enough impact to cause intracranial hemorrhage, especially considering the lack of external findings, as low. We discussed the usual indications for return. Departure - Departure Disposition: Home, Self Care Clinical Impression: Scalp contusion Qualifiers: Encounter type: initial encounter Qualified Code(s): S00.03XA - Contusion of scalp, initial encounter Contusion of shoulder, left Qualifiers: Encounter type: initial encounter Qualified Code(s): S40.012A - Contusion of left shoulder, initial encounter Condition: Stable Instructions: ED Contusion Scalp, ED Contusion Shoulder
== END 2021-08-30 16:48 | disposition home or self-care (01) ==
LOC: ED 15:50
DX: S00.03XA Contusion of scalp, initial encounter (principal); S40.012A Contusion of left shoulder, initial encounter; W20.8XXA Other cause of strike by thrown, projected or falling object, initial encounter; Y92.009 Unspecified place in unspecified non-institutional (private) residence as the place of occurrence of the external cause; F17.200 Nicotine dependence, unspecified, uncomplicated; I10 Essential (primary) hypertension
CPT/HCPCS: 99282; A9270

== ENCOUNTER 2021-09-09 14:04 | Outpatient (CLI) | payer MEDICAID ==
--- NOTE | 2021-09-09 18:24 | XRAY Report ---
PROCEDURE: Shoulder 3 View LT INDICATIONS: PAIN IN LEFT SHOULDER TECHNIQUE: 3 views of the shoulder were acquired. COMPARISON: None. FINDINGS: Bones: No fractures or dislocations. No suspicious bony lesions. Visualized ribs appear intact. G eneralized degenerative changes are seen, including subacromial spurring. Soft tissues: No suspicious soft tissue calcifications. The visualized lung demonstrates a normal a ppearance. IMPRESSION: There are generalized left shoulder degenerative changes seen by plain film. If it would be helpful for clinical management decision making, please consider a dedicated, schedule d shoulder MRI for further evaluation (assuming that there is no contraindication). Reviewed by: Curtis Thompson MD on 09/09/2021 5:23 PM [facility] Approved by: Curtis Thompson MD on 09/09/2021 5:23 PM [facility] Station ID: [id number]
== END 2021-09-09 14:05 | disposition home or self-care (01) ==
LOC: DI.N 14:04
PROVIDERS: ATTEND Internal Medicine
DX: M19.012 Primary osteoarthritis, left shoulder (principal)

== ENCOUNTER 2021-10-25 14:33 | Outpatient (CLI) | payer MEDICAID ==
[2021-10-25 17:54] LABS: BASOPHILS % (AUTO) 0.6 %; EOSINOPHILS # (AUTO) 0.1 10^3/uL (0.0-0.7); EOSINOPHILS % (AUTO) 1.8 %; HCT - HEMATOCRIT 31.5 % (37.0-47.0); HGB - HEMOGLOBIN 9.9 g/dL (12.0-16.0); LYMPHOCYTES # (AUTO) 1.1 10^3/uL (1.5-3.5); LYMPHOCYTES % (AUTO) 22.5 %; MEAN CORPUSCULAR HEMOGLOBIN 27.5 pg (27.0-31.0); MEAN CORPUSCULAR HGB CONC 31.4 g/dL (32.0-36.0); MEAN CORPUSCULAR VOLUME 87.5 fL (81.0-99.0); MEAN PLATELET VOLUME 11.9 fL (7.9-10.8); MONOCYTES # (AUTO) 0.3 10^3/uL (0.0-1.0); MONOCYTES % (AUTO) 6.4 %; NEUTROPHILS # (AUTO) 3.3 10^3/uL (1.5-6.6); NEUTROPHILS % (AUTO) 68.5 %; PLT - PLATELET COUNT 207 10^3/uL (130-450); RED CELL DISTRIBUTION WIDTH 13.6 % (12.0-15.0); WHITE BLOOD COUNT 4.9 x10^3/uL (4.8-10.8)
[2021-10-25 18:20] LABS: THYROID STIMULATING HORMONE 1.37 uIU/mL (0.34-5.60)
[2021-10-25 18:21] LABS: ALBUMIN 3.9 g/dL (3.2-5.5); ALBUMIN/GLOBULIN RATIO 1.4 (1.0-2.2); ALKALINE PHOSPHATASE 68 IU/L (42-121); ALT ALANINE AMINOTRANSFERASE 28 IU/L (10-60); AST ASPARTATE AMINOTRANSFERASE 26 IU/L (10-42); BILIRUBIN,TOTAL 0.9 mg/dL (0.2-1.0); BUN - BLOOD UREA NITROGEN 16 mg/dL (6-20); CALCIUM 9.1 mg/dL (8.5-10.3); CARBON DIOXIDE - CO2 26 mmol/L (21-32); CHLORIDE 105 mmol/L (101-111); CHOL/HDL RATIO 3.6 (<4.4); CHOLESTEROL 189 mg/dL; CREATININE 0.7 mg/dL (0.4-1.0); GFR - MDRD 85 (>89); GLUCOSE 149 mg/dL (70-100); HDL CHOLESTEROL 52 mg/dL; LDL CHOLESTEROL,CALCULATED 111 mg/dL; LDL/HDL RATIO 2.1 (<4.4); POTASSIUM 3.8 mmol/L (3.5-5.0); SODIUM 141 mmol/L (135-145); TOTAL PROTEIN 6.6 g/dL (6.7-8.2); TRIGLYCERIDES 128 mg/dL; VLDL CHOLESTEROL 26 mg/dL
== END 2021-10-25 14:34 | disposition home or self-care (01) ==
LOC: LAB.N 14:33
PROVIDERS: ATTEND Internal Medicine
DX: I10 Essential (primary) hypertension (principal); F33.0 Major depressive disorder, recurrent, mild
CPT/HCPCS: 36415; 80053; 80061; 83721; 84443; 85025

== ENCOUNTER 2021-10-26 09:06 | Outpatient (CLI) | payer MEDICAID ==
--- NOTE | 2021-10-26 13:00 | XRAY Report ---
PROCEDURE: Knee 4 View BILAT INDICATIONS: BILAT KNEE PAIN TECHNIQUE: 4 views of the right and left knee(s) were acquired. COMPARISON: None. FINDINGS: Bones: No fractures or dislocations. No suspicious bony lesions. Moderate right knee lateral compar tment arthritis. Mild right knee medial and patellofemoral compartment osteoarthritis. Moderate left knee medial and lateral compartment osteoarthritis. Left right knee patellofemoral compartment arthri tis. Soft tissues: Trace bilateral suprapatellar joint effusions. No suspicious soft tissue calcifications . IMPRESSION: Bilateral knee tricompartmental osteoarthritis. Reviewed by: Sari Cali MD, PhD on 10/26/2021 12:58 PM PDT Approved by: Sari Cali MD, PhD on 10/26/2021 12:58 PM PDT Station ID: [id number]
== END 2021-10-26 23:59 | disposition home or self-care (01) ==
LOC: DI.WOS 09:06
PROVIDERS: ATTEND Orthopaedic Surgery
DX: M17.0 Bilateral primary osteoarthritis of knee (principal)

== ENCOUNTER 2021-11-13 08:27 | Outpatient (CLI) | payer MEDICAID ==
--- NOTE | 2021-11-13 16:13 | XRAY Report ---
PROCEDURE: Lumbar Spine w/Flex/Ext INDICATIONS: LUMBAR SPONDYLOSIS TECHNIQUE: AP & Lateral views of the lumbar spine were acquired, followed by flexion & extension cristofer ding views of the lumbar spine. COMPARISON: None. FINDINGS: Bones: 5 [id number] vertebrae are present. There is 3 mm retrolisthesis of L2 on L3, 2 mm retr olisthesis L3 on L4, 3 mm retrolisthesis L4 on L5 and 3 mm retrolisthesis of L5 on S1. Multilevel deg enerative disc space narrowing is present. Moderate foraminal narrowing is present at L5-S1.. No cyndi tebral body compression fractures. No suspicious bony lesions. Soft tissues: Overlying bowel gas pattern is normal. No suspicious soft tissue calcifications. Flexion/extension: There is normal range of motion, with preserved normal alignment. IMPRESSION: Multilevel minimal retrolisthesis without dynamic instability. Multilevel degenerative disc and foraminal narrowing. Reviewed by: Ofe Adair MD on 11/13/2021 4:12 PM PDT Approved by: Ofe Adair MD on 11/13/2021 4:12 PM PDT Station ID: [id number]
== END 2021-11-13 08:28 | disposition home or self-care (01) ==
LOC: DI.N 08:27
PROVIDERS: ATTEND Internal Medicine
DX: M43.16 Spondylolisthesis, lumbar region (principal); M43.17 Spondylolisthesis, lumbosacral region; M51.36 Other intervertebral disc degeneration, lumbar region; M48.07 Spinal stenosis, lumbosacral region; R73.01 Impaired fasting glucose; D64.9 Anemia, unspecified
CPT/HCPCS: 36415; 80048; 82607; 82728; 83036; 83540; 84466; 85025; 85045

== ENCOUNTER 2021-11-13 08:32 | Outpatient (CLI) | payer MEDICAID ==
[2021-11-13 12:10] LABS: ABSOLUTE RETICS # AUTO 0.051 10^6/uL (0.020-0.110); BASOPHILS % (AUTO) 0.5 %; EOSINOPHILS # (AUTO) 0.1 10^3/uL (0.0-0.7); EOSINOPHILS % (AUTO) 1.9 %; HCT - HEMATOCRIT 34.2 % (37.0-47.0); LYMPHOCYTES # (AUTO) 1.1 10^3/uL (1.5-3.5); MEAN CORPUSCULAR HEMOGLOBIN 28.6 pg (27.0-31.0); MEAN CORPUSCULAR HGB CONC 32.2 g/dL (32.0-36.0); MEAN CORPUSCULAR VOLUME 89.1 fL (81.0-99.0); MONOCYTES # (AUTO) 0.4 10^3/uL (0.0-1.0); MONOCYTES % (AUTO) 8.7 %; NEUTROPHILS # (AUTO) 2.6 10^3/uL (1.5-6.6); NEUTROPHILS % (AUTO) 62.7 %; PLT - PLATELET COUNT 190 10^3/uL (130-450); RED BLOOD COUNT 3.84 10^6/uL (4.20-5.40); RED CELL DISTRIBUTION WIDTH 13.6 % (12.0-15.0); RETICULOCYTE COUNT % (AUTO) 1.32 % (0.5-2.3); WHITE BLOOD COUNT 4.2 x10^3/uL (4.8-10.8)
[2021-11-13 12:51] LABS: ESTIMATED AVERAGE GLUCOSE 117 mg/dL (70-100); HEMOGLOBIN A1c% 5.7 % (4.27-6.07)
[2021-11-13 12:53] LABS: CALCIUM 9.3 mg/dL (8.5-10.3); CREATININE 0.7 mg/dL (0.4-1.0); POTASSIUM 4.1 mmol/L (3.5-5.0)
[2021-11-13 12:54] LABS: FERRITIN 17.1 ng/mL (11.0-306.8)
== END 2021-11-13 08:33 | disposition home or self-care (01) ==
LOC: LAB.N 08:32
PROVIDERS: ATTEND Internal Medicine
DX: R73.01 Impaired fasting glucose (principal); D64.9 Anemia, unspecified
CPT/HCPCS: 36415; 80048; 82607; 82728; 83036; 83540; 84466; 85025; 85045

== ENCOUNTER 2021-11-30 14:55 | Outpatient (CLI) | payer MEDICAID ==
--- NOTE | 2021-11-30 16:15 | DEXA Report ---
PROCEDURE: Dexa Spine and/or Hip INDICATIONS: POST MENOPAUSAL, LUNG NODULE TECHNIQUE: Dual energy x-ray absorptiometry (DXA) was performed on a [employer] System. Regions measur ed are the AP Spine, femoral neck, and if needed forearm. COMPARISON: None. FINDINGS: Lumbar Spine: Bone Mineral Density 1.108 g/cm/cm,T score -0.6, normal Left Hip: Bone Mineral Density 0.816 g/cm/cm,T score -1.5, mild osteopenia Left Femoral Neck: Bone Mineral Density 0.705 g/cm/cm, T score -2.4, severe osteopenia. (T score greater or equal to -1.0: NORMAL) (T score from -1.1 to -2.4: OSTEOPENIA) (T score less than or equal to -2.5 to: OSTEOPOROSIS) Impression: Severe osteopenia within the left femoral neck, mild in the left hip. Patients with diagnosis of osteoporosis or osteopenia should have regular bone mineral density assess ment. For those eligible for Medicare, routine testing is allowed once every 2 years. Testing frequ ency can be increased for patients who have rapidly progressing disease or for those who are receivin g medical therapy to restore bone mass. Reviewed by: Ofe Adair MD on 11/30/2021 4:13 PM PDT Approved by: Ofe Adair MD on 11/30/2021 4:13 PM PDT Station ID: [id number]
--- NOTE | 2021-12-01 17:26 | CT Report ---
PROCEDURE: CHEST WO INDICATIONS: POST MENOPAUSAL, LUNG NODULE TECHNIQUE: Noncontrast 1mm axial images were acquired from the pulmonary apices to the posterior costophrenic an gles. Axial 5 mm soft tissue kernel reconstructions were performed as well as 8 mm axial MIP and cor onal and sagittal 5 mm reformations. For radiation dose reduction, the following was used: automate d exposure control, adjustment of mA and/or kV according to patient size. COMPARISON: 09/29/2020 FINDINGS: Image quality: Excellent. Lungs and pleura: Pulmonary nodules are as follows: 1. New subsolid pulmonary nodule, right upper lobe, image 119/5, 7 mm. 2. Stable 2 mm right middle lobe pulmonary nodule, image 137/5. 3. Stable 2 mm right lower lobe pulmonary nodule, image 155/5. 4. New subtle groundglass opacity, right upper lobe, image 103/5, measuring 16 mm. 5. New vague groundglass opacity, left upper lobe, image 130/5. 6. Stable ill-defined 6 mm pulmonary nodule, anterior left lower lobe, current image 173/5. No acute air space opacities. No pleural effusions or pneumothorax. Central and peripheral airways are patent and normal in caliber. Mediastinum: Heart size is normal. No pericardial effusion. Moderate coronary artery calcifications . No mediastinal adenopathy by size criteria. Thoracic aorta and central pulmonary arteries are norm al in size. Esophagus is normal in caliber. Moderate hiatal hernia. Bones and chest wall: No suspicious bony lesions. No vertebral body compression fractures. No axil ashvin or supraclavicular adenopathy by size criteria. Thyroid is grossly unremarkable as visualized. Abdomen: Visualized upper abdominal solid organs and bowel loops appear normal in the absence of con trast. IMPRESSION: The previous pulmonary nodules are stable. However, there are 3 new subsolid/groundglass opacity lesi ons present, the largest of which measures 16 mm. These are of uncertain etiology, potentially simply representing areas of inflammation. However, developing carcinomas in situ are not excluded. Comment: Recommend follow-up CT chest in 6 months. CLINICAL RECOMMENDATION STATEMENTS: In patients <35 years with an ITN detected on CT, MRI, or extrathyroidal ultrasound, the Committee re commends further evaluation with dedicated thyroid ultrasound if the nodule is "e1 cm and has no susp icious imaging features, and if the patient has normal life expectancy. In patients "e35 years with an ITN detected on CT, MRI, or extrathyroidal ultrasound, the Committee r ecommends further evaluation with dedicated thyroid ultrasound if the nodule is "e1.5 cm and has no s uspicious imaging features, and if the patient has normal life expectancy. (ACR, 2014) Reviewed by: Nicholas Weinstein MD on 12/01/2021 5:25 PM PDT Approved by: Nicholas Weinstein MD on 12/01/2021 5:25 PM PDT Station ID: [id number]
== END 2021-11-30 14:56 | disposition home or self-care (01) ==
LOC: DI 14:55
PROVIDERS: ATTEND Internal Medicine
DX: Z78.0 Asymptomatic menopausal state (principal); M85.89 Other specified disorders of bone density and structure, multiple sites; R91.8 Other nonspecific abnormal finding of lung field

== ENCOUNTER 2021-12-18 08:00 | Outpatient (CLI) | payer MEDICAID | END 2021-12-20 20:25 | disposition home or self-care (01) | LOC: LAB.N 08:00 | PROVIDERS: ATTEND Nurse Practitioner | DX: U07.1 COVID-19 (principal) ==

== ENCOUNTER 2022-01-25 13:52 | Outpatient (CLI) | payer MEDICAID ==
[2022-01-25 17:46] LABS: BASOPHILS % (AUTO) 0.7 %; EOSINOPHILS # (AUTO) 0.2 10^3/uL (0.0-0.7); EOSINOPHILS % (AUTO) 2.5 %; HCT - HEMATOCRIT 31.3 % (37.0-47.0); LYMPHOCYTES # (AUTO) 1.1 10^3/uL (1.5-3.5); LYMPHOCYTES % (AUTO) 18.5 %; MEAN CORPUSCULAR HEMOGLOBIN 28.7 pg (27.0-31.0); MEAN CORPUSCULAR HGB CONC 31.9 g/dL (32.0-36.0); MEAN CORPUSCULAR VOLUME 89.7 fL (81.0-99.0); MEAN PLATELET VOLUME 11.1 fL (7.9-10.8); MONOCYTES # (AUTO) 0.4 10^3/uL (0.0-1.0); MONOCYTES % (AUTO) 7.3 %; NEUTROPHILS # (AUTO) 4.1 10^3/uL (1.5-6.6); NEUTROPHILS % (AUTO) 70.3 %; PLT - PLATELET COUNT 304 10^3/uL (130-450); RED BLOOD COUNT 3.49 10^6/uL (4.20-5.40); RED CELL DISTRIBUTION WIDTH 12.1 % (12.0-15.0); WHITE BLOOD COUNT 5.9 x10^3/uL (4.8-10.8)
[2022-01-25 18:26] LABS: FERRITIN 31.3 ng/mL (11.0-306.8)
[2022-01-25 19:11] LABS: CREATININE 0.6 mg/dL (0.4-1.0)
[2022-01-25 19:15] LABS: CALCIUM 9.1 mg/dL (8.5-10.3); POTASSIUM 4.1 mmol/L (3.5-5.0)
== END 2022-01-25 13:53 | disposition home or self-care (01) ==
LOC: LAB.N 13:52
PROVIDERS: ATTEND Internal Medicine
DX: I10 Essential (primary) hypertension (principal); D64.9 Anemia, unspecified
CPT/HCPCS: 36415; 80048; 82607; 82728; 83540; 84466; 85025

== ENCOUNTER 2022-04-23 14:54 | Outpatient (CLI) | payer MEDICAID ==
--- NOTE | 2022-04-24 11:27 | CT Report ---
PROCEDURE: CHEST WO INDICATIONS: PULMONARY NODULE TECHNIQUE: Noncontrast 1mm axial images were acquired from the pulmonary apices to the posterior costophrenic an gles. Axial 5 mm soft tissue kernel reconstructions were performed as well as 8 mm axial MIP and cor onal and sagittal 5 mm reformations. For radiation dose reduction, the following was used: automate d exposure control, adjustment of mA and/or kV according to patient size. COMPARISON: CT chest 11/30/2021, 09/29/2020. FINDINGS: Image quality: Good. Lungs and pleura: No acute air space opacities. Right middle lobe pulmonary nodule measuring 0.2 cm, (4/153), unchanged. Left lower lobe pulmonary nodule measuring 0.2 cm, (4/180), unchanged. Groundgla ss pulmonary nodule seen on prior CT are resolved. A few small calcified granuloma. No pleural effusi ons or pneumothorax. Central and peripheral airways are patent and normal in caliber. Mediastinum: Heart size is normal. Moderate coronary artery calcifications in the LAD. No pericardi al effusion. No mediastinal adenopathy by size criteria. Thoracic aorta and central pulmonary arter ies are normal in size. Esophagus is normal in caliber. Multiple hiatal hernia. Bones and chest wall: No suspicious bony lesions. No vertebral body compression fractures. No axil ashvin or supraclavicular adenopathy by size criteria. The thyroid is normal in size and there are no incidental findings. Abdomen: Visualized upper abdominal solid organs and bowel loops appear normal in the absence of con trast. Postcholecystectomy. Left renal cyst is partially visualized. IMPRESSION: 1. The previously seen groundglass pulmonary nodules are no longer present. There are a few pulmonary nodules measuring 0.4 cm or less are unchanged. No new or enlarging pulmonary nodules. Patient likely qualifies for continued lung cancer screening chest CT in one year. 2. Moderate coronary artery calcifications. 3. Small hiatal hernia. Reviewed by: Vishal Blanco MD on 04/24/2022 11:26 AM PDT Approved by: Vishal Blanco MD on 04/24/2022 11:26 AM PDT Station ID: [id number]
== END 2022-04-23 14:55 | disposition home or self-care (01) ==
LOC: DI 14:54
PROVIDERS: ATTEND Internal Medicine
DX: R91.8 Other nonspecific abnormal finding of lung field (principal)

== ENCOUNTER 2022-07-12 11:55 | Outpatient (CLI) | payer OTHER | END 2022-07-12 11:56 | disposition home or self-care (01) | LOC: DI 11:55 | PROVIDERS: ATTEND Internal Medicine | DX: R06.09 Other forms of dyspnea (principal); J44.9 Chronic obstructive pulmonary disease, unspecified | CPT/HCPCS: 93306 ==

== ENCOUNTER 2022-08-02 14:44 | Emergency (ER) | payer OTHER, MEDICAID ==
[2022-08-02 14:55] VITALS: BP 146/66
--- NOTE | 2022-08-02 15:28 | ED Physician Documentation ---
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 She was dropping money off in the safe which has a rotating mechanism and it caught the DIP of her dominance third right digit with moderate pain there. No other injuries. 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 PACU: None : Incontinence HEENT: None Psych: Panic attacks Musculoskeletal: Osteoarthritis, Chronic back pain Derm: None - Past Surgical History Past Surgical History: Yes General: Cholecystectomy HEENT: Tonsil/Adenoidectomy - Present Medications Home Medications: Ambulatory Orders Medication Instructions Recorded Confirmed Aspirin 81 mg PO DAILY 04/02/16 08/02/16 Oxybutynin [Ditropan] 10 mg PO DAILY 04/02/16 08/02/16 Venlafaxine ER [Effexor ER] 75 mg PO DAILY 04/02/16 08/02/16 Albuterol Sulfate [Proair Hfa] 1 puffs IH PRN PRN 04/06/16 08/02/16 Fluticasone [Flonase] 1 sprays YOAN DAILY PRN 04/06/16 08/02/16 Doxycycline Hyclate 100 mg PO BID #14 tablet 11/19/17 predniSONE [Deltasone] 60 mg PO DAILY 5 Days tablet 11/19/17 Albuterol Sulf [Ventolin Hfa 1 - 2 puffs INH Q4HR PRN #1 inhaler 06/09/19 Inhaler] predniSONE [Deltasone] 10 mg PO [id number] #42 tab 06/09/19 - Allergies Allergies/Adverse Reactions: Allergies Allergy/AdvReac Type Severity Reaction Status Date / Time buspirone [From BuSpar] Allergy Hallucinati Verified 08/02/22 14:55 ons - Social History Does the pt smoke?: Yes Smoking Status: Current every day smoker Does the pt drink ETOH?: No Does the pt have substance abuse?: No - Immunizations Immunizations are current?: Yes - POLST Patient has POLST: No PD ED PE NORMAL - Vitals Vital signs reviewed: Yes - General General: Alert and oriented X 3, No acute distress - Extremities Extremities: Other (She is swollen and ecchymotic at the DIP and proximal distal phalanx of the right third finger without limited range of motion. No distal neurovascular compromise.) - Neuro Neuro: Alert and oriented X 3, Normal speech Results - Vitals Vitals: Vital Signs - 24 hr 08/02/22 14:52 Temperature 36 C L Heart Rate 69 Respiratory 16 Rate Blood Pressure 146/66 H O2 Saturation 96 Oxygen O2 Source Room air - Rads (name of study) Three-view x-ray right middle finger is without fracture Radiology: Final report received, EMP read indepedently Procedures - Splint (location) - Minor Right second finger Splint applied by: Physician Type of splint: Metal foam finger splint Departure - Departure Disposition: 01 Home, Self Care Clinical Impression: Crushed finger Qualifiers: Encounter type: initial encounter Qualified Code(s): S67.10XA - Crushing injury of unspecified finger(s), initial encounter Condition: Good Instructions: ED Crush Injury Finger No Fx Comments: Recheck with your doctor in a week if not better, return for new or worsening symptoms. Forms: Activity restrictions Discharge Date/Time: 08/02/22 16:04
[2022-08-02] MEDS ORDERED: IBUPROFEN 600 MG TABLET PO STA (15:29)
--- NOTE | 2022-08-02 16:00 | XRAY Report ---
PROCEDURE: Finger(s) RT INDICATIONS: Trauma TECHNIQUE: AP hand, 3 views of the finger(s) acquired. COMPARISON: None FINDINGS: Bones: No fractures or dislocations. No suspicious bony lesions. Generalized decreased osseous mine ralization present. Degenerative DIP noted Soft tissues: No suspicious soft tissue calcifications. IMPRESSION: Degenerative changes and osteopenia without fracture or foreign body Reviewed by: Melquiades Aldana MD on 08/02/2022 2:59 PM AKST Approved by: Melquiades Aldana MD on 08/02/2022 2:59 PM AKST Station ID: [id number]
== END 2022-08-02 16:04 | disposition home or self-care (01) ==
LOC: ED 14:44
DX: S67.194A Crushing injury of right ring finger, initial encounter (principal); W31.89XA Contact with other specified machinery, initial encounter; Y92.512 Supermarket, store or market as the place of occurrence of the external cause; Y99.0 Civilian activity done for income or pay; I10 Essential (primary) hypertension; F17.200 Nicotine dependence, unspecified, uncomplicated
CPT/HCPCS: 1040M; 73140; 99282; 99283; A9270

== ENCOUNTER 2022-09-12 09:01 | Outpatient (CLI) | payer OTHER ==
[2022-09-12 11:29] LABS: BASOPHILS % (AUTO) 0.9 %; EOSINOPHILS # (AUTO) 0.1 10^3/uL (0.0-0.7); EOSINOPHILS % (AUTO) 2.5 %; HGB - HEMOGLOBIN 10.1 g/dL (12.0-16.0); LYMPHOCYTES # (AUTO) 1.2 10^3/uL (1.5-3.5); LYMPHOCYTES % (AUTO) 26.1 %; MEAN CORPUSCULAR HEMOGLOBIN 26.9 pg (27.0-31.0); MEAN CORPUSCULAR HGB CONC 29.7 g/dL (32.0-36.0); MEAN CORPUSCULAR VOLUME 90.7 fL (81.0-99.0); MEAN PLATELET VOLUME 12.1 fL (7.9-10.8); MONOCYTES # (AUTO) 0.3 10^3/uL (0.0-1.0); MONOCYTES % (AUTO) 7.3 %; NEUTROPHILS # (AUTO) 2.8 10^3/uL (1.5-6.6); PLT - PLATELET COUNT 196 10^3/uL (130-450); RED BLOOD COUNT 3.75 10^6/uL (4.20-5.40); WHITE BLOOD COUNT 4.4 x10^3/uL (4.8-10.8)
[2022-09-12 11:46] LABS: PLATELET ESTIMATE, MANUAL NORMAL (130-450,000) (NORMAL); PLATELET MORPHOLOGY 1+ LARGE PLATELETS (NORMAL); RBC MORPHOLOGY (MULTIPLE) NORMAL APPEARANCE (NORMAL); SLIDE REVIEW? Indicated
[2022-09-12 12:05] LABS: % IRON SATURATION 10 % (20-50); ALBUMIN 3.8 g/dL (3.2-5.5); ALBUMIN/GLOBULIN RATIO 1.4 (1.0-2.2); ALKALINE PHOSPHATASE 68 IU/L (42-121); ALT ALANINE AMINOTRANSFERASE 14 IU/L (10-60); AST ASPARTATE AMINOTRANSFERASE 15 IU/L (10-42); BILIRUBIN,TOTAL 0.7 mg/dL (0.2-1.0); BUN - BLOOD UREA NITROGEN 20 mg/dL (6-20); CALCIUM 9.1 mg/dL (8.5-10.3); CARBON DIOXIDE - CO2 27 mmol/L (21-32); CHLORIDE 104 mmol/L (101-111); CHOLESTEROL 203 mg/dL; CREATININE 0.7 mg/dL (0.4-1.0); GFR - MDRD 84 (>89); GLUCOSE 103 mg/dL (70-100); HDL CHOLESTEROL 51 mg/dL; IRON 43 ug/dL (28-170); LDL CHOLESTEROL,CALCULATED 139 mg/dL; LDL/HDL RATIO 2.7 (<4.4); POTASSIUM 3.9 mmol/L (3.5-5.0); SODIUM 140 mmol/L (135-145); THYROID STIMULATING HORMONE 1.46 uIU/mL (0.34-5.60); TOTAL IRON BINDING CAPACITY 435 ug/dL (250-450); TOTAL PROTEIN 6.5 g/dL (6.7-8.2); TRANSFERRIN 311 mg/dL (192-382); TRIGLYCERIDES 67 mg/dL; VLDL CHOLESTEROL 13 mg/dL
[2022-09-12 12:12] LABS: FERRITIN 7.3 ng/mL (11.0-306.8)
[2022-09-12 12:19] LABS: ESTIMATED AVERAGE GLUCOSE 120 mg/dL (70-100); HEMOGLOBIN A1c% 5.8 % (4.27-6.07)
== END 2022-09-12 09:02 | disposition home or self-care (01) ==
LOC: LAB.N 09:01
PROVIDERS: ATTEND Internal Medicine
DX: D64.9 Anemia, unspecified (principal); R73.01 Impaired fasting glucose; Z13.220 Encounter for screening for lipoid disorders; F33.0 Major depressive disorder, recurrent, mild
CPT/HCPCS: 36415; 80053; 80061; 82043; 82570; 82607; 82728; 83036; 83540; 83721; 84443; 84466; 85025

== ENCOUNTER 2022-09-13 08:00 | Outpatient (CLI) | payer OTHER ==
[2022-09-13 18:14] LABS: CREATININE,URINE 78.1 mg/dL; MICROALBUM/CREATININE RATIO,UR 5.1 ug/mg (<30.0); MICROALBUMIN,URINE 0.4 mg/dL (0-300.0)
== END 2022-09-13 23:59 | disposition home or self-care (01) ==
LOC: LAB.R 08:00
PROVIDERS: ATTEND Internal Medicine
DX: R73.01 Impaired fasting glucose (principal)
CPT/HCPCS: 82043; 82570

== ENCOUNTER 2022-09-27 15:00 | Outpatient (CLI) | payer OTHER ==
[2022-09-28 12:06] LABS: BILIRUBIN,URINE NEGATIVE (NEGATIVE); GLUCOSE, URINE (UA) NEGATIVE (NEGATIVE); KETONES,URINE (UA) NEGATIVE (NEGATIVE); LEUKOCYTE ESTERASE, URINE NEGATIVE (NEGATIVE); NITRITE,URINE NEGATIVE (NEGATIVE); OCCULT BLOOD,URINE NEGATIVE (NEGATIVE); PH,URINE 5.5 PH (5.0-7.5); PROTEIN,URINE NEGATIVE (NEGATIVE); UROBILINOGEN,URINE 0.2 (NORMAL) E.U./dL (NORMAL)
[2022-09-28 12:27] LABS: AMORPHOUS SEDIMENT,UR Marked /LPF; BACTERIA,URINE Rare /HPF (None Seen); CLARITY,URINE CLOUDY (CLEAR); CRYSTALS,URINE 0-2 Calcium Oxalate /LPF; RBC,URINE None Seen /HPF (0-5); SQUAMOUS EPITHELIAL CELL,UR NONE SEEN (<= Few); WBC,URINE 0-3 /HPF (0-5)
== END 2022-09-27 23:59 | disposition home or self-care (01) ==
LOC: LAB.WC 15:00
PROVIDERS: ATTEND Nurse Practitioner
DX: R30.0 Dysuria (principal)
CPT/HCPCS: 81001; 87086

== ENCOUNTER 2022-10-10 11:00 | Outpatient (CLI) | payer OTHER ==
--- NOTE | 2022-10-12 12:18 | Mammography Report ---
BILATERAL DIGITAL DIAGNOSTIC MAMMOGRAM 3D/2D: 10/10/2022 CLINICAL: Diffuse bilateral breast pain. Comparison is made to exams dated: 04/20/2021 mammogram, 12/18/2018 mammogram, 11/28/2017 mammogram, 07/2017 mammogram, and 10/06/2015 mammogram - [facility]. Both breasts are almost entirely fatty (category a/<25% glandular tissue). There are benign post operative findings in the right breast. No significant masses, calcifications, or other findings are seen in either breast. There has been no significant interval change. IMPRESSION: BENIGN There is no mammographic evidence of malignancy. Patient describes intermittent non focal breast pain. Exam findings were conveyed to the patient. Patient is advised to monitor for significant change. Cli nical follow-up as needed. A 1 year screening mammogram is recommended. Based on the Tyrer Cuzick model (a risk assessment model) the patients lifetime risk is 9.7% and her 10 year risk is 4.5%. According to the ACR, ACS, and NCCN guidelines, an annual breast MRI exam dereje g with mammogram is recommended if the patients lifetime risk is 20% or greater. This exam was interpreted at Station ID: [id number]. NOTE: For mammograms, a report in lay terms will be sent to the patient. Approximately 15% of breast malignancies will not be visualized mammographically. In the management of a palpable breast mass, a negative mammogram must not discourage biopsy of a clinically suspicious lesion. Electronically Signed By: Vishal Blanco M.D. slc/:10/10/2022 11:34:00 letter sent: No_Letter ACR BI-RADS Category 2: Benign Finding(s) 3342F PARENCHYMAL PATTERN: (F) - The breast(s) demonstrate(s) diffuse fatty replacement. BI-RADS CATEGORY: (2) - 2 Mammogram [id number] 1 year screening LATERALITY: (B)
== END 2022-10-10 11:01 | disposition home or self-care (01) ==
LOC: DI 11:00
PROVIDERS: ATTEND Internal Medicine
DX: N64.4 Mastodynia (principal)

== ENCOUNTER 2022-10-16 14:17 | Outpatient (CLI) | payer OTHER ==
--- NOTE | 2022-10-16 15:53 | XRAY Report ---
PROCEDURE: Knee 4 View BILAT INDICATIONS: BILAT KNEE PAIN TECHNIQUE: 4 views of the the right and left knee(s) were acquired. COMPARISON: None. FINDINGS: Bones: No fractures or dislocations. No suspicious bony lesions. Both knees have tricompartmental degenerative changes with tricompartmental osteophytes. There is lateral joint space narrowing of rafael th knees. Soft tissues: Small suprapatellar joint effusions. IMPRESSION: Tricompartmental degenerative changes of both knees consistent with osteoarthritis with lateral joint space narrowing. Reviewed by: Bayron Schwartz on 10/16/2022 3:51 PM PDT Approved by: Bayron Schwartz on 10/16/2022 3:51 PM PDT Station ID: [id number]
== END 2022-10-16 14:18 | disposition home or self-care (01) ==
LOC: DI.WOS 14:17
PROVIDERS: ATTEND Orthopaedic Surgery
DX: M17.0 Bilateral primary osteoarthritis of knee (principal)

== ENCOUNTER 2023-01-30 08:00 | Outpatient (CLI) | payer OTHER, MEDICARE ==
[2023-01-30 17:51] LABS: BASOPHILS % (AUTO) 0.6 %; EOSINOPHILS # (AUTO) 0.1 10^3/uL (0.0-0.7); HCT - HEMATOCRIT 30.7 % (37.0-47.0); HGB - HEMOGLOBIN 9.4 g/dL (12.0-16.0); LYMPHOCYTES # (AUTO) 0.9 10^3/uL (1.5-3.5); LYMPHOCYTES % (AUTO) 17.3 %; MEAN CORPUSCULAR HEMOGLOBIN 27.6 pg (27.0-31.0); MEAN CORPUSCULAR HGB CONC 30.6 g/dL (32.0-36.0); MEAN CORPUSCULAR VOLUME 90.3 fL (81.0-99.0); MEAN PLATELET VOLUME 12.3 fL (7.9-10.8); MONOCYTES # (AUTO) 0.5 10^3/uL (0.0-1.0); NEUTROPHILS # (AUTO) 3.6 10^3/uL (1.5-6.6); NEUTROPHILS % (AUTO) 69.9 %; PLT - PLATELET COUNT 188 10^3/uL (130-450); RED CELL DISTRIBUTION WIDTH 13.2 % (12.0-15.0); WHITE BLOOD COUNT 5.1 x10^3/uL (4.8-10.8)
[2023-01-30 18:23] LABS: % IRON SATURATION 8 % (20-50); IRON 38 ug/dL (28-170); TOTAL IRON BINDING CAPACITY 466 ug/dL (250-450); TRANSFERRIN 333 mg/dL (192-382)
== END 2023-01-30 23:59 | disposition home or self-care (01) ==
LOC: LAB.N 08:00
PROVIDERS: ATTEND Internal Medicine
DX: D64.9 Anemia, unspecified (principal)
CPT/HCPCS: 36415; 82728; 83540; 84466; 85025

== ENCOUNTER 2023-02-27 08:00 | Outpatient (CLI) | payer MEDICARE ==
[2023-02-27 20:37] LABS: BACTERIAL VAGINOSIS DNA NEGATIVE (NEGATIVE); CANDIDA GLABRATA DNA NEGATIVE (NEGATIVE); CANDIDA GROUP DNA NEGATIVE (NEGATIVE); CANDIDA KRUSEI DNA NEGATIVE (NEGATIVE); TRICHOMONAS VAGINALIS DNA NEGATIVE (NEGATIVE)
[2023-02-27 22:01] LABS: CHLAMYDIA TRACHOMATIS DNA NEGATIVE (NEGATIVE); NEISSERIA GONORRHOEAE DNA NEGATIVE (NEGATIVE)
== END 2023-02-27 23:59 | disposition home or self-care (01) ==
LOC: LAB.WC 08:00
PROVIDERS: ATTEND Nurse Practitioner
DX: N90.89 Other specified noninflammatory disorders of vulva and perineum (principal); Z11.3 Encounter for screening for infections with a predominantly sexual mode of transmission; N89.8 Other specified noninflammatory disorders of vagina
CPT/HCPCS: 81514; 87252; 87491; 87591; 87661

== ENCOUNTER 2023-06-06 13:32 | Outpatient (CLI) | payer MEDICARE ==
--- NOTE | 2023-06-06 17:50 | CT Report ---
PROCEDURE: CHEST WO INDICATIONS: LUNG NODULE TECHNIQUE: Noncontrast 1mm axial images were acquired from the pulmonary apices to the posterior costophrenic an gles. Axial 5 mm soft tissue kernel reconstructions were performed as well as 8 mm axial MIP and cor onal and sagittal 5 mm reformations. For radiation dose reduction, the following was used: automate d exposure control, adjustment of mA and/or kV according to patient size. COMPARISON: 04/23/2022 FINDINGS: Image quality: Excellent. Lungs and pleura: No consolidation. No pleural effusions. No pneumothorax. Previously described 2 mm nodule in the right middle lobe series 3 image 151 and 2 mm in the left lower lobe series 3 image 18 4 in the left lower lobe are both unchanged compared to prior CT on 04/23/2022. Mediastinum: Heart size is normal. No pericardial effusion. Coronary artery calcifications. Large hia pricsilla hernia. No large vessel abnormality. No mediastinal adenopathy by size criteria. Moderate-sized hiatal hernia. Chest wall and lower neck: Thyroid is unremarkable. No axillary or supraclavicular adenopathy by size . Bones: No aggressive osseous abnormality. Upper Abdomen: Unremarkable. IMPRESSION: 1. 2 mm nodules described above are stable for one year and are considered benign. 2. Coronary artery calcifications. 3. Moderate-sized hiatal hernia. Reviewed by: Bayron Schwartz on 06/06/2023 5:48 PM PDT Approved by: Bayron Schwartz on 06/06/2023 5:48 PM PDT Station ID: [id number]
== END 2023-06-06 13:33 | disposition home or self-care (01) ==
LOC: DI 13:32
PROVIDERS: ATTEND Internal Medicine
DX: J43.2 Centrilobular emphysema (principal); R91.8 Other nonspecific abnormal finding of lung field; I25.10 Atherosclerotic heart disease of native coronary artery without angina pectoris; K44.9 Diaphragmatic hernia without obstruction or gangrene; I10 Essential (primary) hypertension; Z13.220 Encounter for screening for lipoid disorders; D64.9 Anemia, unspecified; R73.01 Impaired fasting glucose
CPT/HCPCS: 36415; 80053; 80061; 82728; 83036; 83540; 83721; 84466; 85025

== ENCOUNTER 2023-08-07 08:36 | Emergency (ER) | payer MEDICARE ==
[2023-08-07 10:34] VITALS: BP 166/80; O2SAT 98
--- NOTE | 2023-08-07 10:52 | ED Physician Documentation ---
PD HPI HEADACHE - Stated complaint Stated Complaint: HIGH BP,DOOLEY - Chief complaint Chief Complaint: General - History obtained from History obtained from: Patient - History of Present Illness Timing - onset: How many weeks ago (2) Timing - onset during: Rest, Light activity Timing - duration: Weeks (2) Timing - details: Gradual onset (has had posterior headache pressur efeeling for 2 weeks intermittently, more consistent the past 2-3 days. Took her BP this morning and was elevated at 190s systolic. Does not usually take BP at home. No focal deficits.), Still present, Intermittant Location: Back Quality: Throbbing, Aching Improved by: No: Rest Worsened by: No: Light, Noise Contributing factors: Hypertension. 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 : Incontinence HEENT: None Psych: Panic attacks Musculoskeletal: Osteoarthritis, Chronic back pain Derm: None - Past Surgical History Past Surgical History: Yes General: Cholecystectomy HEENT: Tonsil/Adenoidectomy - Present Medications Home Medications: Ambulatory Orders Medication Instructions Recorded Confirmed Aspirin 81 mg PO DAILY 04/02/16 02/14/23 Fluticasone [Flonase] 2 sprays YOAN DAILY PRN 04/06/16 02/14/23 Albuterol Sulf [Ventolin Hfa 1 - 2 puffs INH Q4HR PRN #1 inhaler 06/09/19 02/14/23 Inhaler] Fluticasone/Salmeterol [Advair 2 puffs INH DAILY 02/14/23 02/14/23 500-50 Diskus] Ipratropium [Atrovent] 02/14/23 Ipratropium [Atrovent] 02/14/23 Ipratropium [Atrovent] 2 puffs INH DAILY PRN 02/14/23 02/14/23 Loratadine [All Day Allergy Relief] 10 mg PO DAILY 02/14/23 02/14/23 Losartan [Cozaar] 50 mg PO DAILY 02/14/23 02/14/23 Nystatin 1 gm TOP DAILY PRN 02/14/23 02/14/23 Omeprazole Magnesium 20 mg PO DAILY 02/14/23 02/14/23 Ondansetron HCl 4 mg PO BID PRN 02/14/23 02/14/23 Rosuvastatin Calcium [Crestor] 10 mg PO DAILY 02/14/23 02/14/23 Zolpidem [Ambien] 5 mg PO DAILY PM PRN 02/14/23 02/14/23 estradioL vaginal [Estrace vaginal] 1 applic VG DAILY 02/14/23 02/14/23 valACYclovir [Valtrex] 500 mg PO DAILY PRN 02/14/23 02/14/23 Amitriptyline [Elavil] 25 mg PO HS #20 tablet 08/07/23 HYDROcod/ACETAM 5/325 [[place] 5/325] 1 ea PO Q6H PRN #15 tablet 08/07/23 Meloxicam [Mobic] 7.5 mg PO BID 10 Days #20 tablet 08/07/23 - Allergies Allergies/Adverse Reactions: Allergies Allergy/AdvReac Type Severity Reaction Status Date / Time buspirone [From BuSpar] Allergy Hallucinati Verified 02/14/23 14:21 ons - Social History Does the pt smoke?: Yes Smoking Status: Current every day smoker Does the pt drink ETOH?: No Does the pt have substance abuse?: No - Immunizations Immunizations are current?: Yes - POLST Patient has POLST: No PD ED PE NORMAL - Vitals Vital signs reviewed: Yes - General General: Alert and oriented X 3, No acute distress, Well developed/nourished - HEENT HEENT: Atraumatic, PERRL, EOMI - Neck Neck: Supple, no meningeal sign, No bony TTP, No adenopathy, Other (not tender in occipital area) - Cardiac Cardiac: RRR, No murmur - Respiratory Respiratory: Clear bilaterally - Derm Derm: Normal color, Warm and dry - Neuro Neuro: Alert and oriented X 3, No motor deficit, No sensory deficit, Normal speech Results - Vitals Vitals: Vital Signs - 24 hr 08/07/23 08/07/23 08:43 10:28 Temperature 36.7 C Heart Rate 71 63 Respiratory 18 20 Rate Blood Pressure 147/81 H 166/80 H O2 Saturation 99 98 Oxygen O2 Source Room air - Labs Labs: Laboratory Tests 08/07/23 08/07/23 08/07/23 12:10 12:10 12:10 WBC 4.9 RBC 4.06 L Hgb 11.4 L Hct 36.6 L MCV 90.1 MCH 28.1 MCHC 31.1 L RDW 11.7 L Plt Count 171 MPV 11.2 H Neut # (Auto) 3.2 Lymph # (Auto) 1.2 L [place] # (Auto) 0.4 Eos # (Auto) 0.1 Baso # (Auto) 0.0 Absolute Nucleated RBC 0.00 Nucleated RBC % 0.0 ESR 15 Sodium 141 Potassium 4.1 Chloride 106 Carbon Dioxide 27 Anion Gap 8.0 BUN 19 Creatinine 0.6 Estimated GFR (MDRD) 100 Glucose 85 Calcium 9.6 Magnesium 1.8 Total Bilirubin 0.7 AST 16 ALT 15 Alkaline Phosphatase 72 Total Protein 7.1 Albumin 4.4 Globulin 2.7 Albumin/Globulin Ratio 1.6 Lipase 29 PD Medical Decision Making - ED course Complexity details: re-evaluated patient (headache improving with Toradol. Has normal basic labs. Pt states she does not want to stay awaiting CT head (has a few others ahead of her in the ED. We discussed the need to return if worsening DOOLEY or other symptoms, otherwise to see PMD in next few days. To try meds re: functional DOOLEY. ), considered differential (had flu like symptoms month or so ago. No recent fevers. No injury. pressure type headache. Consider functional headache such as tension, persistent daily DOOLEY. Not having migraine type pattern. Can get labs and CT head. ), d/w patient Departure - Departure Disposition: Home, Self Care Clinical Impression: Headache Condition: Stable Record reviewed to determine appropriate education?: Yes Instructions: ED Cephalgia Unspecified Follow-Up: Andrea Tirado MD [Primary Care Provider] - Prescriptions: Amitriptyline [Elavil] 25 mg PO HS #20 tablet Meloxicam [Mobic] 7.5 mg PO BID 10 Days #20 tablet HYDROcod/ACETAM 5/325 [[place] 5/325] 1 ea PO Q6H PRN #15 tablet PRN Reason: Pain Comments: I am sorry our department is backed up today and there was a delay on getting imaging such as CT scan. At this point we can treat your headache as a tension or persistent daily headache with a combination of meloxicam anti-inflammatory combined with amitriptyline at night for the next week or 2. Add Tylenol 500 to 650 mg 4 times daily if needed for headache or hydrocodone/acetaminophen if needed for worse headache at times. See how much improvement you have with these over the next several days and hopefully improved and resolved over 3 to 5 days. I sent your prescription to [facility] pharmacy. Follow-up with your primary care, call for an appointment. If you have persisting headaches despite the above or worsening headaches or other symptoms associated, then we would want to do imaging such as CT or MRI to ensure no structural abnormality causing the headache. The incidence of these is very low. I am prescribing a short course of narcotic pain medication for you. These are potentially dangerous and addictive medications that should be used carefully. These medications may constipate you. Take an ayxu-nnv-pxrccur stool softener such as docusate twice daily with plenty of water while taking these medications. If you go 24 hours without a bowel movement, take [id number]-[id number] MiraLAX, per package instructions. Do not drink or drive while taking these medications. If you received narcotic or sedating medications while in the emergency dep artment do not drive for 24 hours. Store this medication in a safe, secure place and out of reach of children. It is a violation of federal law to give or sell this medication to another person or to use in a manner other than prescribed. The ED will not refill narcotic prescriptions, including prescriptions lost or stolen. You can dispose of unwanted medications at the [facility]'s office or at several pharmacies such as [facility]. Forms: PCP List Discharge Date/Time: 08/07/23 13:02
[2023-08-07 12:17] LABS: BASOPHILS % (AUTO) 0.6 %; EOSINOPHILS # (AUTO) 0.1 10^3/uL (0.0-0.7); EOSINOPHILS % (AUTO) 1.8 %; HCT - HEMATOCRIT 36.6 % (37.0-47.0); HGB - HEMOGLOBIN 11.4 g/dL (12.0-16.0); LYMPHOCYTES # (AUTO) 1.2 10^3/uL (1.5-3.5); LYMPHOCYTES % (AUTO) 23.6 %; MEAN CORPUSCULAR HEMOGLOBIN 28.1 pg (27.0-31.0); MEAN CORPUSCULAR HGB CONC 31.1 g/dL (32.0-36.0); MEAN CORPUSCULAR VOLUME 90.1 fL (81.0-99.0); MEAN PLATELET VOLUME 11.2 fL (7.9-10.8); MONOCYTES # (AUTO) 0.4 10^3/uL (0.0-1.0); MONOCYTES % (AUTO) 7.4 %; NEUTROPHILS # (AUTO) 3.2 10^3/uL (1.5-6.6); NEUTROPHILS % (AUTO) 66.4 %; PLT - PLATELET COUNT 171 10^3/uL (130-450); RED BLOOD COUNT 4.06 10^6/uL (4.20-5.40); RED CELL DISTRIBUTION WIDTH 11.7 % (12.0-15.0); WHITE BLOOD COUNT 4.9 x10^3/uL (4.8-10.8)
[2023-08-07 12:39] LABS: ALBUMIN 4.4 g/dL (3.2-5.5); ALBUMIN/GLOBULIN RATIO 1.6 (1.0-2.2); BILIRUBIN,TOTAL 0.7 mg/dL (0.2-1.0); CALCIUM 9.6 mg/dL (8.5-10.3); CREATININE 0.6 mg/dL (0.6-1.3); MAGNESIUM 1.8 mg/dL (1.7-2.3); POTASSIUM 4.1 mmol/L (3.5-4.5); TOTAL PROTEIN 7.1 g/dL (6.4-8.9)
[2023-08-07] MEDS ORDERED: KETOROLAC 15 MG/ML VIAL IVP STA (12:44)
== END 2023-08-07 13:02 | disposition home or self-care (01) ==
LOC: ED 08:36
DX: R51.9 Headache, unspecified (principal); F17.200 Nicotine dependence, unspecified, uncomplicated
CPT/HCPCS: 36415; 80053; 83690; 83735; 85025; 85651; 93005; 99284

== ENCOUNTER 2023-08-16 09:00 | Outpatient (CLI) | payer MEDICARE ==
[2023-08-16 12:14] LABS: BASOPHILS % (AUTO) 0.2 %; EOSINOPHILS # (AUTO) 0.1 10^3/uL (0.0-0.7); EOSINOPHILS % (AUTO) 1.9 %; HCT - HEMATOCRIT 35.3 % (37.0-47.0); HGB - HEMOGLOBIN 11.2 g/dL (12.0-16.0); LYMPHOCYTES # (AUTO) 0.8 10^3/uL (1.5-3.5); LYMPHOCYTES % (AUTO) 17.8 %; MEAN CORPUSCULAR HEMOGLOBIN 28.5 pg (27.0-31.0); MEAN CORPUSCULAR HGB CONC 31.7 g/dL (32.0-36.0); MEAN CORPUSCULAR VOLUME 89.8 fL (81.0-99.0); MEAN PLATELET VOLUME 11.4 fL (7.9-10.8); MONOCYTES # (AUTO) 0.3 10^3/uL (0.0-1.0); NEUTROPHILS # (AUTO) 3.1 10^3/uL (1.5-6.6); NEUTROPHILS % (AUTO) 71.6 %; PLT - PLATELET COUNT 191 10^3/uL (130-450); RED BLOOD COUNT 3.93 10^6/uL (4.20-5.40); RED CELL DISTRIBUTION WIDTH 11.6 % (12.0-15.0); WHITE BLOOD COUNT 4.3 x10^3/uL (4.8-10.8)
[2023-08-16 12:44] LABS: ALBUMIN 4.2 g/dL (3.2-5.5); ALBUMIN/GLOBULIN RATIO 1.8 (1.0-2.2); BILIRUBIN,TOTAL 0.7 mg/dL (0.2-1.0); CALCIUM 9.4 mg/dL (8.5-10.3); CREATININE 0.6 mg/dL (0.6-1.3); POTASSIUM 4.2 mmol/L (3.5-4.5); TOTAL PROTEIN 6.6 g/dL (6.4-8.9)
[2023-08-16 12:54] LABS: FERRITIN 11.6 ng/mL (11.0-306.8)
[2023-08-16 12:58] LABS: CREATININE,URINE 126.1 mg/dL; MICROALBUM/CREATININE RATIO,UR 5.6 ug/mg (<30.0); MICROALBUMIN,URINE 0.7 mg/dL
[2023-08-16 12:59] LABS: ESTIMATED AVERAGE GLUCOSE 111 mg/dL (70-100); HEMOGLOBIN A1c% 5.5 % (4.27-6.07)
== END 2023-08-16 09:01 | disposition home or self-care (01) ==
LOC: LAB.N 09:00
PROVIDERS: ATTEND Internal Medicine
DX: I10 Essential (primary) hypertension (principal); R73.01 Impaired fasting glucose; D64.9 Anemia, unspecified
CPT/HCPCS: 36415; 80053; 82043; 82570; 82728; 83036; 83540; 84466; 85025

== ENCOUNTER 2023-09-05 08:00 | Outpatient (CLI) | payer MEDICARE, OTHER ==
--- NOTE | 2023-09-05 13:22 | XRAY Report ---
PROCEDURE: Knee 4 View BILAT INDICATIONS: BILAT KNEE PAIN TECHNIQUE: 5 views of the knee(s) were acquired. COMPARISON: Bilateral knee x-ray 10/16/2022 FINDINGS: Bones: No fractures or dislocations. Tricompartmental osteoarthritic changes with tricompartmental o steophyte formation. Moderate bilateral joint space narrowing of the bilateral knees. No suspicious bony lesions. Soft tissues: No knee joint effusion. No suspicious soft tissue calcifications or masses. IMPRESSION: Moderate osteoarthritic changes of the bilateral knees, most pronounced within the lateral tibiofemor al compartments. Reviewed by: Jermain Kiran MD on 09/05/2023 1:21 PM PST Approved by: Jermain Kiran MD on 09/05/2023 1:21 PM PST Station ID: [id number]
== END 2023-09-05 23:59 | disposition home or self-care (01) ==
LOC: DI.WOS 08:00
PROVIDERS: ATTEND Orthopaedic Surgery
DX: M17.0 Bilateral primary osteoarthritis of knee (principal)

== ENCOUNTER 2023-11-13 08:08 | Outpatient (CLI) | payer OTHER ==
[2023-11-13 12:00] LABS: ABSOLUTE RETICS # AUTO 0.071 10^6/uL (0.020-0.110); BASOPHILS % (AUTO) 0.2 %; HCT - HEMATOCRIT 36.4 % (37.0-47.0); HGB - HEMOGLOBIN 11.3 g/dL (12.0-16.0); LYMPHOCYTES # (AUTO) 0.5 10^3/uL (1.5-3.5); LYMPHOCYTES % (AUTO) 4.9 %; MEAN CORPUSCULAR HEMOGLOBIN 28.1 pg (27.0-31.0); MEAN CORPUSCULAR VOLUME 90.5 fL (81.0-99.0); MEAN PLATELET VOLUME 12.4 fL (7.9-10.8); MONOCYTES # (AUTO) 0.2 10^3/uL (0.0-1.0); MONOCYTES % (AUTO) 1.9 %; NEUTROPHILS # (AUTO) 10.1 10^3/uL (1.5-6.6); NEUTROPHILS % (AUTO) 92.6 %; PLT - PLATELET COUNT 225 10^3/uL (130-450); RED BLOOD COUNT 4.02 10^6/uL (4.20-5.40); RED CELL DISTRIBUTION WIDTH 11.9 % (12.0-15.0); RETICULOCYTE COUNT % (AUTO) 1.76 % (0.5-2.3); WHITE BLOOD COUNT 10.9 x10^3/uL (4.8-10.8)
[2023-11-13 12:30] LABS: THYROID STIMULATING HORMONE 0.43 uIU/mL (0.34-5.60)
[2023-11-13 12:32] LABS: FERRITIN 7.3 ng/mL (11.0-306.8)
== END 2023-11-13 08:09 | disposition home or self-care (01) ==
LOC: LAB.N 08:08
PROVIDERS: ATTEND Internal Medicine
DX: D64.9 Anemia, unspecified (principal); F33.0 Major depressive disorder, recurrent, mild; I10 Essential (primary) hypertension
CPT/HCPCS: 36415; 82728; 83540; 84443; 84466; 85025; 85045

== ENCOUNTER 2024-03-14 08:00 | Outpatient (CLI) | payer OTHER | END 2024-03-14 23:59 | disposition home or self-care (01) | LOC: LAB.N 08:00 | PROVIDERS: ATTEND Physician Assistant Medical | DX: R82.90 Unspecified abnormal findings in urine (principal) | CPT/HCPCS: 87086; 87181 ==

== ENCOUNTER 2024-04-22 10:27 | Outpatient (CLI) | payer OTHER ==
[2024-04-22 11:38] LABS: BASOPHILS % (AUTO) 0.6 %; EOSINOPHILS # (AUTO) 0.1 10^3/uL (0.0-0.7); EOSINOPHILS % (AUTO) 2.1 %; HCT - HEMATOCRIT 35.6 % (37.0-47.0); HGB - HEMOGLOBIN 11.2 g/dL (12.0-16.0); LYMPHOCYTES # (AUTO) 0.9 10^3/uL (1.5-3.5); MEAN CORPUSCULAR HEMOGLOBIN 29.2 pg (27.0-31.0); MEAN CORPUSCULAR HGB CONC 31.5 g/dL (32.0-36.0); MEAN PLATELET VOLUME 11.7 fL (7.9-10.8); MONOCYTES # (AUTO) 0.3 10^3/uL (0.0-1.0); MONOCYTES % (AUTO) 6.1 %; NEUTROPHILS # (AUTO) 3.4 10^3/uL (1.5-6.6); NEUTROPHILS % (AUTO) 71.8 %; PLT - PLATELET COUNT 186 10^3/uL (130-450); RED BLOOD COUNT 3.83 10^6/uL (4.20-5.40); RED CELL DISTRIBUTION WIDTH 12.6 % (12.0-15.0); WHITE BLOOD COUNT 4.8 x10^3/uL (4.8-10.8)
[2024-04-22 11:55] LABS: % IRON SATURATION 21 % (20-50); ALBUMIN 4.2 g/dL (3.2-5.5); ALKALINE PHOSPHATASE 68 IU/L (42-121); ALT ALANINE AMINOTRANSFERASE 13 IU/L (10-60); AST ASPARTATE AMINOTRANSFERASE 13 IU/L (10-42); BILIRUBIN,TOTAL 0.7 mg/dL (0.2-1.0); BUN - BLOOD UREA NITROGEN 19 mg/dL (6-20); CALCIUM 9.3 mg/dL (8.5-10.3); CARBON DIOXIDE - CO2 31 mmol/L (21-32); CHLORIDE 104 mmol/L (101-111); CHOL/HDL RATIO 2.4 (<4.4); CHOLESTEROL 139 mg/dL; CREATININE 0.7 mg/dL (0.6-1.3); GFR - MDRD 84 (>89); GLUCOSE 102 mg/dL (74-104); HDL CHOLESTEROL 58 mg/dL; IRON 72 ug/dL (50-212); LDL CHOLESTEROL,CALCULATED 66 mg/dL; LDL/HDL RATIO 1.1 (<4.4); POTASSIUM 3.8 mmol/L (3.5-4.5); SODIUM 140 mmol/L (135-145); TOTAL IRON BINDING CAPACITY 349 ug/dL (250-450); TOTAL PROTEIN 6.3 g/dL (6.4-8.9); TRANSFERRIN 249 mg/dL (203-362); TRIGLYCERIDES 75 mg/dL; VLDL CHOLESTEROL 15 mg/dL
[2024-04-22 12:07] LABS: THYROID STIMULATING HORMONE 0.73 uIU/mL (0.34-5.60)
[2024-04-22 12:11] LABS: ESTIMATED AVERAGE GLUCOSE 105 mg/dL (70-100); HEMOGLOBIN A1c% 5.3 % (4.27-6.07)
[2024-04-22 12:13] LABS: FERRITIN 40.5 ng/mL (11.0-306.8)
== END 2024-04-22 10:28 | disposition home or self-care (01) ==
LOC: LAB.N 10:27
PROVIDERS: ATTEND Internal Medicine
DX: E78.5 Hyperlipidemia, unspecified (principal); D64.9 Anemia, unspecified; R73.01 Impaired fasting glucose; F33.0 Major depressive disorder, recurrent, mild
CPT/HCPCS: 36415; 80053; 80061; 82728; 83036; 83540; 83721; 84443; 84466; 85025